=== PATIENT | male | born 1965 | race Caucasian/White ===

== ENCOUNTER 2016-10-30 10:44 | Inpatient (IN) | payer OTHER, SELFPAY ==
[~2016-10-30] VITALS: Ht 180.3 cm; Wt 96.7 kg
[2016-10-30] MEDS ORDERED: GLUCAGON FOR INJ 1 MG VIAL (J1610) SC PRN (13:00)
[2016-10-30] MEDS ORDERED: NITROGLYCERIN 0.4 MG SUBL TABLET SL PRN (13:00)
[2016-10-30] MEDS ORDERED: MIRALAX *UNIT DOSE* 17GM PACKET PO PRN (13:00)
[2016-10-30] MEDS ORDERED: oxyCODONE 5MG TAB PO PRN (13:00)
[2016-10-30] MEDS ORDERED: MOM 30ML SUSPENSION UDC PO PRN (13:00)
[2016-10-30] MEDS ORDERED: DEXTROSE 50% 50 ML SYRINGE IV PRN (13:00)
[2016-10-30] MEDS ORDERED: GLUCOSE 4 GM CHEW TABLET PO PRN (13:00)
[2016-10-30 14:30] VITALS: BP 157/75
--- NOTE | 2016-10-30 15:55 | HPEPDOC ---
Supervisor Buffing And Pasting Note ADMISSION H&P + [facility]OKESH DATE OF ADMISSION: 10/30/16 DATE OF SERVICE: 10/30/16 IDENTIFICATION STATEMENT: Patient is a 51-year-old gentleman with extended hospital course due to ARDS/pneumonia, acute kidney injury, DKA and acute heart failure admitted for comprehensive integrated inpatient rehabilitation. There ve been no significant changes in the patients condition since the preadmission screening. HISTORY OF PRESENT ILLNESS: Patient is a 51-year-old gentleman with multiple medical comorbidities including peripheral vascular disease status post femoropopliteal bypass, and recent non-ST elevation SC status post 4 drug- eluting stents on 10/02/2016 who was admitted to [facility] on October 07 with shortness of breath. He was diagnosed with pneumonia/ARDS required intubation. He was also found to have acute kidney injury with peak creatinine of 5.5. He required pressure support briefly. He developed of 2 bouts of florid DKA while on the vent. He also developed anasarca (up 30lbs) at which time he was transferred to [facility] for higher-level care/ potential dialysis. He is status post ceftaroline, meropenem and vancomycin. He was eventually of extubated on at [place]. Post extubation patient declining cognition with slow responses and was not oriented, but he was able to answer questions and follow commands. On 10/17/2016 was transferred back to [facility] on 10/19/2016 for continued care. Of note, his hemoglobin has been relatively stable although he has required transfusion of 5 units of packed red blood cells. He has been heme negative on multiple occasions. He is also noted to have relative hyperkalemia with potassium of 5-5.2. Hemoglobin A1c was 10.4. Patients medical condition has improved significantly; however, he continues to experience significant decline in his baseline functional status. As such recommendation was for acute rehabilitation. On 10/30/2016 he was deemed stable for discharge to [facility] inpatient rehabilitation unit. On evaluation today, patient reports that he was not on any pain medication or antidepressant prior to his recent admission. On his only pain is in his buttock area on which she describes as constant, waxing and waning, burning pain , rates the pain 5-6 on pain scale. He reports urinating well, no dysuria. Dc catheter was discontinued at approximately 10 AM this morning. He denies any pelvic fullness or pain. His last bowel movement was yesterday, he reports it as normal in consistency, denies of bright red blood per rectum or melena. Prior to admission he was on Lantus 35 units daily at bedtime along with you Humalog sliding scale before meals and at bedtime. PAST MEDICAL HISTORY: Hypertension Hyperlipidemia Diabetes mellitus type 2, insulin dependent (last hemoglobin A1c of 10.4) Peripheral vascular disease Coronary artery disease (80% obtuse marginal; 90% circumflex; mid left anterior descending 80%, proximal left anterior descending 70%) Chronic kidney disease (baseline creatinine approximately 1.3) Depressive disorder PAST SURGICAL HISTORY: Cholecystectomy Anal fistula repair in 1999 Right femoral popliteal bypass c/b saphenous graft abscess (MRSA)of the right thigh, revision in 2013 at [facility] Left bypass with graft ~2012 Non-ST elevation SC status post drug-eluting stents on 10/02/2016 (2 in the LAD , 1 obtuse marginal, 1 circumflex) ALLERGIES: Ciprofloxacin leads to hives MEDICATIONS: Amlodipine 10 mg daily Aspirin 81 mg daily Lipitor 80 mg daily Plavix 75 mg daily Ferrous sulfate 324 mg twice a day Lasix 40 mg by mouth daily Insulin sliding scale before meals and at bedtime Lantus 20 units subcutaneous at bedtime Nitroglycerin 0.4 mg sublingual when necessary for chest pain Metoprolol tartrate 50 mg by mouth twice a day Oxycodone IR 5 mg every 4 hours as needed for breakthrough pain Paxil 20 mg by mouth daily FAMILY HISTORY: Patients father suffered from diabetes type 2, of lung cancer at the age of 72. Patients mother suffered from diabetes mellitus type 2. She was in a motor vehicle accident and has been apparent paralyzed of with dysphasia and PEG tube since that time. SOCIAL HISTORY: Patient lives in a two-story house, but there is a first floor set up. There are 4 steps to enter. Review of Systems: General: no chills, +fatigue, +weight changes as above. Eyes: no change of vision. Ears, Nose & Throat: + sore throat but getting better , no decreased hearing or nasal discharge. Cardiovascular: no chest pain, claudication, + chronic LL edema, no syncopal episodes. Pul: no cough, SOB, orthopnea. GI: no abdominal pain, GERD, N/V, C/D, BRBPR/tarry stools, incontinence. Genitourinary: no frequency/dysuria. Musculoskeletal: no back/ neck/joint pain, +muscle achiness, burning pain in the bilateral buttocks and posterior thighs as above. Neurological: no numbness, paresthesias, no tremors, + diffuse weakness, no seizures, ABDI. Hematological: No bleeding disorders. Skin : +skin rash buttocks. Psychiatric: no depression, anxiety, behavioral issues. VITAL SIGNS: 98.1F, pulse 75, respiratory rate of 18, blood pressure 157/75, 96 % saturation on room air PHYSICAL EXAMINATION: GENERAL: Well nourished, well developed, sitting up in bed, no acute distress. HEENT: Normocephalic, atraumatic. No facial droop. No jugular venous distention (JVD). PERRL, EOMI CARDIOVASCULAR: S1, S2, regular rate. 2+ pitting edema bilateral lower limbs, no significant edema bilateral upper limbs. No calf tenderness bilaterally. LUNGS: +bibasilar basilar crackles, no wheezing or rhonchi appreciated. ABDOMEN: Soft, nontender, nondistended. Positive normoactive bowel sounds throughout. MUSCULOSKELETAL: Manual muscle testin/5 bilateral hip flexors and shoulder abduction and flexion, 5/5 remainder of the bilateral upper and lower limbs in all major muscle groups Sensation: Intact to soft touch bilateral upper and lower limbs. Deep tendon reflexes: Unable to elicit biceps or patellar bilaterally. NEUROLOGICAL: Alert and oriented x 3. Answers all questions appropriately. Able to follow commands without difficulty. SKIN: Extensive excoriation, blanching to nonblanching erythema bilateral buttocks over the sacrum, gluteal folds, posterio medial thighs, to 1 cm in diameter areas of skin breakdown posterior thigh and over the sacrum. Well healed surgical scars bilateral lower limbs. LABORATORY DATA: 10/29/2016: WBC count 8.4, hemoglobin 8.2, platelets 234,000, sodium 137, potassium 5.2, bicarbonate 28, BUN 33, creatinine 1.86, blood glucose 155. Sputum culture 10/17/2016: No bacteria seen IMAGING: Chest x-ray from [facility]: Pulmonary edema OTHER TESTS Echocardiogram on 10/19/2016: Preserved EF FUNCTIONAL STATUS: Premorbid: Independent with ADLs and ambulation. On Admission: Moderate assistance, able to ambulate 6 feet. ASSESSMENT AND PLAN: 1. ARDS status post extubation: Respiratory failure thought secondary to heart failure and possible pneumonia. Patient is status post antibiotics. Per the last laboratories his WBC count is within normal limits and he is off oxygen supplementation. Monitor for recurrence. Incentive spirometry. 2. Fluid overload/heart failure: Recent echocardiogram [facility] showed a preserved ejection fracture although official report is not available at this time. Patient is status post aggressive diuresis on. Will continue Lasix daily for the next 4-5 days. Well monitor daily weights along with intake and outtake. Continuation versus Discontinuing continuation of the diuretic will be pending the patients overall clinical status over the next few days. Will monitor patients electrolytes as well. 3. Acute kidney injury: Thought multifactorial secondary to contrast from recent catheterization, supratherapeutic vancomycin and congestive nephropathy. Per recent labs patients renal function has significantly improved although was not yet back to baseline. Will obtain a BMP with with morning labs. Medication adjustments as indicated. 4. Diabetes mellitus type 2 status post DKA: Given recent hemoglobin A1c, patient has not been well controlled. In conversation with Dr. Olvera, his attendant at [facility], his blood glucose has been labile ranging from the 70s up to 300s. Will maintain patient on long-acting insulin with insulin sliding scale. Adjustments as indicated. Carb consistent diet. 5. Gait abnormality and dysfunctional ADLs with overall medical debility secondary to extended hospital course related to items #1 through 4 above: Patient will undergo thorough physical and occupational therapy evaluations followed by daily intensive therapy. Rehabilitation nursing for bladder, bowel and medication management. 6. Electrolytes: Hyperkalemia secondary to acute kidney injury. As stated above , patient is continued on diuresis. Well obtain on a BMP along with a magnesium level with morning labs. 7. Coronary artery disease status post drug-eluting stents: Well maintain patient on aspirin and Plavix. 8. Anemia status post 5 units packed red blood cells: Given recent drug-eluting stents, patient must remain on Plavix and aspirin. There is no evidence there is no evidence at this time of active bleeding. Will obtain CBC in the morning. Well also obtain iron studies. Maintain hemoglobin greater than 8 given his comorbidities. 9. Stage II decubiti with possible comorbid fungal infection: Will prescribe nystatin cream. Foam dressings over the area of open areas. Mobilization. 10. Diet/nutrition: Will obtain a prealbumin with morning labs. Carbohydrate consistent diet. Nutritional supplements as indicated. POST ADMISSION PHYSICIAN EVALUATION: On evaluation of the patient today there' ve been no significant medical issues or functional changes as compared to those noted in the preadmission screening document. This patient's inpatient rehabilitation remains necessary in light of the above conditions. The patient' s medical condition requires specialized care with physicians specially trained in physical medicine rehabilitation. The patient is capable motivated to participate in a minimum of 3 hours of therapy daily, 5 days minimum per week, and requires intensive inpatient rehabilitation to improve their functional status so that they can be safely to discharge back to their home. PROGNOSIS: Good ESTIMATED LENGTH OF STAY: 14 days. / Vital Signs Vital Sign - Last 24 Hours 10/30/16 14:30 Temp 98.1 Pulse 75 Resp 18 B/P 157/75 Pulse Ox 96 O2 Delivery Room Air Home Medications Scheduled (B Complex) 1 Tab Tab 1 TAB PO DAILY (Reported) Amlodipine Besylate (Amlodipine Besylate) 5 Mg Tab 5 MG PO DAILY (Reported) 10MG DOSE GIVEN IN HOSP, HOME MED 5MG Aspirin (Aspirin 81) 81 Mg Tab 81 MG PO DAILY (Reported) Atorvastatin Calcium (Atorvastatin Calcium) 80 Mg Tab 80 MG PO DAILY (Reported) 40 MG GIVEN IN HOSP Clopidogrel Bisulfate (Clopidogrel) 75 Mg Tab 75 MG PO DAILY (Reported) Enoxaparin Sodium (Enoxaparin Sodium) 40 Mg/0.4 Ml Inj 40 MG SC QHS (Reported) NOT HOME MED, GIVEN IN HOSP Hydrocortisone Acetate (Hydrocortisone Acetate) 1 % Cre 1 DOSE TOP BID (Reported ) APPLIED TO BUTTOCKS Insulin Glargine (Lantus) 1 Units/0.01 Ml Susp 35 UNITS SC QHS (Reported) 20 UNITS GIVEN IN HOSP Insulin Human Regular (Humulin R) 1 Units/0.01 Ml Soln 1 DOSE SC TID (Reported) Lisinopril (Lisinopril) 20 Mg Tab 20 MG PO DAILY (Reported) Metoprolol Tartrate (Metoprolol Tartrate) 50 Mg Tab 50 MG PO BID (Reported) Pantoprazole Sodium (Pantoprazole Sodium) 40 Mg Tab 40 MG PO DAILY (Reported) NOT HOME MED, GIVEN IN HOSP Paroxetine Hydrochloride (Paxil) 20 Mg Tab 20 MG PO DAILY (Reported) Scheduled PRN Acetaminophen (Acetaminophen) 325 Mg Tab 650 MG PO Q6H PRN PRN PAIN (Reported) Cyclobenzaprine HCl (Cyclobenzaprine HCl) 5 Mg Tab 5 MG PO TID PRN PRN MUSCLE SPASMS (Reported) Nystatin (Nystatin Oint) 1 Dose/15 Gm Oint 1 DOSE TOP TID PRN PRN RASH (Reported ) APPLIED TO BUTTOCKS Nystatin (Nystatin Powder) 100,000 Unit/Gm Pow 1 DOSE TOP BID PRN PRN RASH ( Reported) APPLIED TO BUTTOCKS Allergies Coded Allergies: Ciprofloxacin (Verified Allergy, Unknown, 10/30/16) UVALDO BOLIVAR MD Oct 30, 2016 15:55
[2016-10-30] MEDS ORDERED: AMLO10TA2 PO (16:39)
[2016-10-30] MEDS ORDERED: PANT40TA2 PO (16:39)
[2016-10-30] MEDS ORDERED: ATOR40TA PO (16:39)
[2016-10-30] MEDS ORDERED: ENOX40IN3 SC (16:39)
[2016-10-30] MEDS ORDERED: ACET-654 PO (16:39)
[2016-10-30] MEDS ORDERED: METO50TA2 PO (16:39)
[2016-10-30] MEDS ORDERED: HYDR1CRE27 TOP (16:39)
[2016-10-30] MEDS ORDERED: INSURSD SC (16:39)
[2016-10-30] MEDS ORDERED: ASPI1TAB PO (16:39)
[2016-10-30] MEDS ORDERED: CLOP75TA2 PO (16:39)
[2016-10-30] MEDS ORDERED: PAXI20TA3 PO (16:39)
[2016-10-30] MEDS ORDERED: INSULANT SC (16:39)
[2016-10-30] MEDS ORDERED: FUROSEMIDE 40 MG TAB PO SCH (17:00)
[2016-10-30] MEDS ORDERED: AMLO5TAB2 PO (17:00)
[2016-10-30] MEDS ORDERED: ATOR1TAB18 PO (17:02)
[2016-10-30] MEDS ORDERED: B COTAB3 PO (17:04)
[2016-10-30] MEDS ORDERED: NYST-6 TOP (17:06)
[2016-10-30] MEDS ORDERED: CYCL5TA PO (17:06)
[2016-10-30] MEDS ORDERED: NYST100024 TOP (17:06)
[2016-10-30] MEDS ORDERED: LISI-538 PO (17:08)
[2016-10-30] MEDS: HumaLOG INSULIN (NovoLOG) PER UNIT SC SCH ×2 (18:19→21:49)
[2016-10-30 20:00] VITALS: BP 166/81
[2016-10-30] MEDS: GABAPENTIN 100 MG CAP PO SCH (21:47)
[2016-10-30] MEDS: SENNA 8.6 MG TAB (SENOKOT) PO SCH (21:47)
[2016-10-30] MEDS: DOCUSATE SODIUM 100 MG CAP PO SCH (21:47)
[2016-10-30] MEDS: METOPROLOL TART 50 MG TAB PO SCH (21:48)
[2016-10-30] MEDS: LEVEMIR (INSULIN DETEMIR) 1 UNITS/0.01ML SC SCH (21:49)
[2016-10-30] MEDS: NYSTATIN CREAM 15 GM TOP SCH (21:49)
[2016-10-31 06:00] VITALS: BP 149/76
[2016-10-31 06:48] LABS: MEAN CORPUSCULAR HGB CONC 31.6 g/dl (32.0-36.5); RED CELL DISTRIBUTION WIDTH 13.9 % (11.5-14.5); WHITE BLOOD COUNT 6.9 K/mm3 (4.0-10.0)
[2016-10-31 07:13] LABS: CALCIUM LEVEL 8.2 MG/DL (8.5-10.1); CREATININE FOR GFR 1.82 MG/DL (0.70-1.30); MAGNESIUM LEVEL 1.8 MG/DL (1.8-2.4); PERCENT SATURATION 26.6 % (19.7-37.4); POTASSIUM SERUM 4.4 MEQ/L (3.5-5.1)
[2016-10-31] MEDS: HumaLOG INSULIN (NovoLOG) PER UNIT SC SCH ×4 (07:30→20:42)
[2016-10-31] MEDS: ASPIRIN 81 MG ENTERIC TAB PO SCH (08:17)
[2016-10-31] MEDS: PANTOPRAZOLE 40MG TAB (PROTONIX) PO SCH (08:17)
[2016-10-31] MEDS: METOPROLOL TART 50 MG TAB PO SCH ×2 (08:17→20:49)
[2016-10-31] MEDS: CLOPIDOGREL 75 MG TAB PO SCH (08:17)
[2016-10-31] MEDS: DOCUSATE SODIUM 100 MG CAP PO SCH ×2 (08:17→20:43)
[2016-10-31] MEDS: ATORVASTATIN 20 MG TAB PO SCH (08:18)
[2016-10-31] MEDS: FUROSEMIDE 40 MG TAB PO SCH (08:18)
[2016-10-31] MEDS: amLODIPine 10 MG TAB PO SCH (08:18)
[2016-10-31] MEDS: NYSTATIN CREAM 15 GM TOP SCH ×2 (08:19→20:42)
[2016-10-31] MEDS ORDERED: PARoxetine 20 MG TAB PO SCH (09:00)
[2016-10-31 14:00] VITALS: BP 106/56
[2016-10-31] MEDS: FERROUS GLUCONATE 324 MG TAB PO SCH ×2 (16:00→20:41)
[2016-10-31] MEDS: ASCORBIC ACID 500 MG TAB PO SCH ×2 (16:00→20:41)
[2016-10-31 20:00] VITALS: BP 148/77
[2016-10-31] MEDS: GABAPENTIN 100 MG CAP PO SCH (20:41)
[2016-10-31] MEDS: LEVEMIR (INSULIN DETEMIR) 1 UNITS/0.01ML SC SCH (20:42)
[2016-10-31] MEDS: SENNA 8.6 MG TAB (SENOKOT) PO SCH (20:43)
[2016-11-01 06:00] VITALS: BP 148/74
[2016-11-01] MEDS: HumaLOG INSULIN (NovoLOG) PER UNIT SC SCH ×4 (07:30→21:24)
[2016-11-01 07:47] LABS: CALCIUM LEVEL 8.3 MG/DL (8.5-10.1); CREATININE FOR GFR 1.93 MG/DL (0.70-1.30); GLOMERULAR FILTRATION RATE 39.3 (>56); POTASSIUM SERUM 4.6 MEQ/L (3.5-5.1)
[2016-11-01 08:04] LABS: BASO % 0.7 % (0.0-1.0); EOS # 0.5 K/mm3 (0.0-0.50); LARGE UNSTAINED CELL # 0.1 K/mm3 (0.0-0.4); LARGE UNSTAINED CELL % 2.4 % (0.0-4.0); LYMPH # 1.2 K/mm3 (1.5-4.5); LYMPH % 22.6 % (24.0-44.0); MEAN CORPUSCULAR HEMOGLOBIN 31.2 pg (27.0-33.0); MEAN CORPUSCULAR HGB CONC 31.6 g/dl (32.0-36.5); MEAN CORPUSCULAR VOLUME 98.8 fl (80.0-96.0); MONO # 0.5 K/mm3 (0.0-0.8); MONO % 10.1 % (0.0-5.0); NEUTROPHILS # 2.7 K/mm3 (1.8-7.7); NEUTROPHILS % 54.2 % (36.0-66.0); PLATELET COUNT, AUTOMATED 347 k/mm3 (150-450); RED CELL DISTRIBUTION WIDTH 14.4 % (11.5-14.5)
[2016-11-01] MEDS: ASCORBIC ACID 500 MG TAB PO SCH ×2 (08:56→21:23)
[2016-11-01] MEDS: DOCUSATE SODIUM 100 MG CAP PO SCH ×2 (08:56→21:23)
[2016-11-01] MEDS: ASPIRIN 81 MG ENTERIC TAB PO SCH (08:56)
[2016-11-01] MEDS: FUROSEMIDE 40 MG TAB PO SCH (08:57)
[2016-11-01] MEDS: CLOPIDOGREL 75 MG TAB PO SCH (08:57)
[2016-11-01] MEDS: amLODIPine 10 MG TAB PO SCH (08:57)
[2016-11-01] MEDS: FERROUS GLUCONATE 324 MG TAB PO SCH ×2 (08:57→21:23)
[2016-11-01] MEDS: ATORVASTATIN 20 MG TAB PO SCH (08:57)
[2016-11-01] MEDS: PARoxetine 10MG TABLET PO SCH (09:00)
[2016-11-01] MEDS: METOPROLOL TART 50 MG TAB PO SCH ×2 (09:00→21:23)
[2016-11-01] MEDS: PANTOPRAZOLE 40MG TAB (PROTONIX) PO SCH (09:00)
[2016-11-01] MEDS: NYSTATIN CREAM 15 GM TOP SCH ×2 (09:01→21:25)
[2016-11-01 14:04] VITALS: BP 140/70
[2016-11-01] MEDS: ACETAMINOPHEN TAB 650MG DOSE (2X325MG) PO PRN (18:38)
[2016-11-01 20:04] VITALS: BP 135/68
[2016-11-01] MEDS: SENNA 8.6 MG TAB (SENOKOT) PO SCH (21:23)
[2016-11-01] MEDS: GABAPENTIN 100 MG CAP PO SCH (21:23)
[2016-11-01] MEDS: LEVEMIR (INSULIN DETEMIR) 1 UNITS/0.01ML SC SCH (21:24)
[2016-11-02 06:00] VITALS: BP 137/82
[2016-11-02 06:44] LABS: MEAN CORPUSCULAR HEMOGLOBIN 31.3 pg (27.0-33.0); MEAN CORPUSCULAR VOLUME 97.6 fl (80.0-96.0); RED CELL DISTRIBUTION WIDTH 14.4 % (11.5-14.5); WHITE BLOOD COUNT 4.7 K/mm3 (4.0-10.0)
[2016-11-02 06:59] LABS: CALCIUM LEVEL 8.6 MG/DL (8.5-10.1); CREATININE FOR GFR 1.94 MG/DL (0.70-1.30); POTASSIUM SERUM 4.6 MEQ/L (3.5-5.1)
[2016-11-02] MEDS: HumaLOG INSULIN (NovoLOG) PER UNIT SC SCH ×4 (07:20→20:21)
[2016-11-02] MEDS: CLOPIDOGREL 75 MG TAB PO SCH (08:53)
[2016-11-02] MEDS: ATORVASTATIN 20 MG TAB PO SCH (08:53)
[2016-11-02] MEDS: ASCORBIC ACID 500 MG TAB PO SCH ×2 (08:53→20:17)
[2016-11-02] MEDS: amLODIPine 10 MG TAB PO SCH (08:53)
[2016-11-02] MEDS: PANTOPRAZOLE 40MG TAB (PROTONIX) PO SCH (08:53)
[2016-11-02] MEDS: DOCUSATE SODIUM 100 MG CAP PO SCH ×2 (08:53→20:17)
[2016-11-02] MEDS: FERROUS GLUCONATE 324 MG TAB PO SCH ×2 (08:53→20:17)
[2016-11-02] MEDS: FUROSEMIDE 40 MG TAB PO SCH (08:54)
[2016-11-02] MEDS: ASPIRIN 81 MG ENTERIC TAB PO SCH (08:54)
[2016-11-02] MEDS: PARoxetine 10MG TABLET PO SCH (08:54)
[2016-11-02] MEDS: METOPROLOL TART 50 MG TAB PO SCH ×2 (08:54→20:17)
[2016-11-02] MEDS: NYSTATIN CREAM 15 GM TOP SCH ×2 (08:55→20:20)
[2016-11-02 14:00] VITALS: BP 129/71
--- NOTE | 2016-11-02 14:43 | IPNPDOC ---
Cancer Genetic Counselor Progress Note PROGREE NOTE DATE OF ADMISSION: 10/30/16 DATE OF SERVICE: 11/02/16 IDENTIFICATION STATEMENT: Patient is a 51-year-old gentleman with extended hospital course due to ARDS/pneumonia, acute kidney injury, DKA, acute heart failure admitted for comprehensive integrated inpatient rehabilitation. PAST MEDICAL HISTORY: Hypertension Hyperlipidemia Diabetes mellitus type 2, insulin dependent (last hemoglobin A1c of 10.4) Peripheral vascular disease Coronary artery disease (80% obtuse marginal; 90% circumflex; mid left anterior descending 80%, proximal left anterior descending 70%) Chronic kidney disease (baseline creatinine approximately 1.3) Depressive disorder PAST SURGICAL HISTORY: Cholecystectomy Anal fistula repair in 1999 Right femoral popliteal bypass c/b saphenous graft abscess (MRSA)of the right thigh, revision in 2013 at [facility] Left bypass with graft ~2012 Non-ST elevation [place] status post drug-eluting stents on 10/02/2016 (2 in the LAD , 1 obtuse marginal, 1 circumflex) ALLERGIES: Ciprofloxacin leads to hives MEDICATIONS: Amlodipine 10 mg daily Aspirin 81 mg daily Lipitor 80 mg daily Plavix 75 mg daily Ferrous sulfate 324 mg twice a day Lasix 40 mg by mouth daily Insulin sliding scale before meals and at bedtime Lantus 20 units subcutaneous at bedtime Nitroglycerin 0.4 mg sublingual when necessary for chest pain Metoprolol tartrate 50 mg by mouth twice a day Oxycodone IR 5 mg every 4 hours as needed for breakthrough pain Paxil 20 mg by mouth daily SUBJECTIVE: Patient w/o complaints. Feels pretty good. Denies any CP, SOB, N/V, BRBPR, lightheadedness, diaphoresis. Legs a little more swollen than usual. VITAL SIGNS: 97.4F, pulse 64, respiratory rate of 18, blood pressure 129/71, 96 % saturation on room air PHYSICAL EXAMINATION: GENERAL: Well nourished, well developed, sitting up in chair, no acute distress. HEENT: Normocephalic, atraumatic. PERRL, EOMI CARDIOVASCULAR: S1, S2, regular rate. 1-2+ pitting edema bilateral lower limbs. No calf tenderness bilaterally. LUNGS: +bibasilar basilar crackles, no wheezing or rhonchi appreciated. ABDOMEN: Soft, nontender, nondistended. Positive normoactive bowel sounds throughout. MUSCULOSKELETAL: Manual muscle testin/5 bilateral hip flexors and shoulder abduction and flexion, 5/5 remainder of the bilateral upper and lower limbs in all major muscle groups NEUROLOGICAL: Alert and oriented x 3. Answers all questions appropriately. Able to follow commands without difficulty. SKIN: Extensive excoriation, blanching to nonblanching erythema bilateral buttocks over the sacrum, gluteal folds, posteriomedial thighs, to 1 cm in diameter areas of skin breakdown posterior thigh and over the sacrum. LABORATORY DATA: 11/02/16: reviewed, see below 10/29/2016: WBC count 8.4, hemoglobin 8.2, platelets 234,000, sodium 137, potassium 5.2, bicarbonate 28, BUN 33, creatinine 1.86, blood glucose 155. Sputum culture 10/17/2016: No bacteria seen IMAGING: Chest x-ray from [facility]: Pulmonary edema OTHER TESTS Echocardiogram on 10/19/2016: Preserved EF FUNCTIONAL STATUS: Premorbid: Independent with ADLs and ambulation. On Admission: Moderate assistance, able to ambulate 6 feet. ASSESSMENT AND PLAN: 1. ARDS status post extubation: Respiratory failure thought secondary to heart failure and possible pneumonia. Patient is status post antibiotics. Monitor for recurrence. Incentive spirometry. 2. Fluid overload/heart failure: Recent echocardiogram showed a preserved ejection fracture. Patient is status post aggressive diuresis on. Will continue Lasix daily for now give LL edema and crackles. Continue daily weights along with intake and outtake. 3. Acute kidney injury (multifactorial secondary to contrast from recent catheterization, supratherapeutic vancomycin and congestive nephropathy): Not yet back to baseline. Am labs. 4. Diabetes mellitus type 2 status post DKA: Maintain long-acting insulin with insulin sliding scale. Adjustments as indicated. Carb consistent diet. 5. Gait abnormality and dysfunctional ADLs with overall medical debility secondary to extended hospital course related to items #1 through 4 above: Patient making progress. Continue daily physical and occupational therapy. Rehabilitation nursing for bladder, bowel and medication management. 6. Electrolytes: Hyperkalemia secondary to acute kidney injury, resolved. 7. Coronary artery disease status post drug-eluting stents: Maintain patient on aspirin and Plavix. Maintain Hgb > 8 8. Anemia status post 5 units packed red blood cells at OSH: S/p 1 unit this weekend. Also started on iron supplementation. Given recent drug-eluting stents , patient must remain on Plavix and aspirin. Will obtain CBC in the morning. As above,mMaintain hemoglobin greater than 8 given his comorbidities. 9. Stage II decubiti with possible comorbid fungal infection: Continue nystatin cream. Foam dressings over the area of open areas. Mobilization. 10. Diet/malnutrition: Prealbumin low. Carbohydrate consistent diet. Glucerna nutritional supplements. / Vital Signs Vital Sign - Last 24 Hours 11/01/16 11/01/16 11/02/16 11/02/16 20:04 21:23 06:00 08:53 Temp 97.4 97.6 Pulse 76 76 72 72 Resp 18 18 B/P 135/68 135/68 137/82 137/82 Pulse Ox 95 95 O2 Delivery Room Air 11/02/16 11/02/16 08:54 14:00 Temp 97.4 Pulse 72 64 Resp 18 B/P 137/82 129/71 Pulse Ox 96 O2 Delivery Room Air Laboratory Data CBC/BMP Laboratory Tests 11/02/16 06:32 Calcium Level 8.6, Red Blood Count 2.72 L, Mean Corpuscular Volume 97.6 H, Mean Corpuscular Hemoglobin 31.3, Mean Corpuscular Hemoglobin Concent 32.0, Red Cell Distribution Width 14.4 Labs 24H Laboratory Tests 2 11/01/16 16:34: Bedside Glucose (Misc Panel) 196H 11/01/16 20:19: Bedside Glucose (Misc Panel) 227H 11/02/16 06:32: Anion Gap 7L, Blood Urea Nitrogen 26H, Creatinine 1.94H, Sodium Level 141, Potassium Level 4.6, Chloride Level 104, Carbon Dioxide Level 30, Calcium Level 8.6, Glomerular Filtration Rate 39.0L 11/02/16 11:20: Bedside Glucose (Misc Panel) 82 FSBS Laboratory Tests Test 11/01/16 16:34 11/01/16 20:19 11/02/16 11:20 Range/Units Bedside Glucose (Misc Panel) 196 227 82 70-105 MG/DL Microbiology Microbiology 10/30/16 MRSA Screen - Final, Complete Allergies Allergies: Coded Allergies: Ciprofloxacin (Verified Allergy, Unknown, 10/30/16) Current Medications Current Medications Current Medications Acetaminophen (Tylenol Tab) 650 mg Q4HP PRN PO MILD PAIN (PS 1-4) Last administered on 11/01/16t 18:38; Start 10/30/16 at 13:00; Stop 11/29/16 at 12:59 Amlodipine Besylate (Norvasc) 10 mg DAILY PO Last administered on 11/02/16 08: 53; Start 10/31/16 at 09:00; Stop 11/30/16 at 08:59 Ascorbic Acid (Vitamin C) 500 mg BID PO Last administered on 11/02/16 08:53; Start 10/31/16 at 09:00; Stop 11/30/16 at 08:59 Aspirin (Ecotrin) 81 mg DAILY PO Last administered on 11/02/16 08:54; Start at 09:00; Stop 11/30/16 at 08:59 Atorvastatin Calcium (Lipitor) 80 mg DAILY PO Last administered on 11/02/16 08 :53; Start 10/31/16 at 09:00; Stop 11/30/16 at 08:59 Clopidogrel Bisulfate (PLAVix) 75 mg DAILY PO Last administered on 11/02/16 08 :53; Start 10/31/16 at 09:00; Stop 11/30/16 at 08:59 Dextrose (Dextrose 50%) 25 ml ASDIRECTED PRN IV SEE LABEL COMMENTS; Start 10/30 at 13:00; Stop 11/29/16 at 12:59 Docusate Sodium (Colace) 100 mg BID PO Last administered on 11/02/16 08:53; Start 10/30/16 at 21:00; Stop 11/29/16 at 20:59 Ferrous Gluconate (Fergon) 324 mg BID PO Last administered on 11/02/16 08:53; Start 10/31/16 at 09:00; Stop 11/30/16 at 08:59 Furosemide (Lasix) 40 mg BID@ PO ; Start 10/30/16 at 17:00; Stop 10/30/16 at 17:00; Status DC Furosemide (Lasix) 40 mg DAILY PO Last administered on 11/02/16 08:54; Start 10/31/16 at 09:00; Stop 11/30/16 at 08:59 Gabapentin (Neurontin) 100 mg QHS PO Last administered on 11/01/16 21:23; Start 10/30/16 at 21:00; Stop 11/29/16 at 20:59 Glucagon (Glucagon) 1 mg ASDIRECTED PRN SC SEE LABEL COMMENTS; Start 10/30/16 at 13:00; Stop 11/29/16 at 12:59 Glucose (Glucose) 16 GM ASDIRECTED PRN PO SEE LABEL COMMENTS; Start 10/30/16 at 13:00; Stop 11/29/16 at 12:59 Home Med (Med Rec Complete!) ASDIRECTED XX ; Start 10/30/16 at 17:15; Stop 07/06 at 17:15; Status DC Insulin Detemir (Levemir Insulin) 20 units QHS SC Last administered on 21:24; Start 10/30/16 at 21:00; Stop 11/29/16 at 20:59 Insulin Human Lispro (HumaLOG INSULIN) See Protocol Table AC SC Last administered on 11/01/16 17:34; Start 10/30/16 at 17:30; Stop 11/29/16 at 17:29 Insulin Human Lispro (HumaLOG INSULIN) See Protocol Table QHS SC ; Start at 21:00; Stop 11/29/16 at 20:59 Magnesium Hydroxide (Milk Of Magnesia) 30 ml DAILYPRN PRN PO CONSTIPATION; Start 10/30/16 at 13:00; Stop 11/29/16 at 12:59 Metoprolol Tartrate (Lopressor) 50 mg BID PO Last administered on 11/02/16 08: 54; Start 10/30/16 at 21:00; Stop 11/29/16 at 20:59 Nitroglycerin (Nitrostat (1/ 150)) 0.4 mg Q5MP PRN SL CHEST PAIN; Start at 13:00; Stop 11/29/16 at 12:59 Nystatin (Mycostatin) 1 dose BID TOP Last administered on 11/02/16 08:55; Start 10/30/16 at 21:00; Stop 11/29/16 at 20:59 Oxycodone HCl (Roxicodone, Oxyir) 5 mg Q4HP PRN PO MODERATE/SEVERE PAIN (PS 6- 10) Last administered on 10/31/16 09:07; Start 10/30/16 at 13:00; Stop at 12:59 Pantoprazole Sodium (Protonix) 40 mg DAILY PO Last administered on 11/02/16 08 :53; Start 10/31/16 at 09:00; Stop 11/30/16 at 08:59 Paroxetine HCl (PAXil) 10 mg DAILY PO Last administered on 11/02/16 08:54; Start 11/01/16 at 09:00; Stop 12/01/16 at 08:59 Paroxetine HCl (PAXil) 20 mg DAILY PO Last administered on 10/31/16 08:16; Start 10/31/16 at 09:00; Stop 10/31/16 at 12:10; Status DC Polyethylene Glycol (Miralax) 1 pkt DAILY PRN PO CONSTIPATION; Start 10/30/16 at 13:00; Stop 11/29/16 at 12:59 Senna (Senokot) 1 tab QHS PO Last administered on 11/01/16 21:23; Start at 21:00; Stop 11/29/16 at 20:59 UVALDO BOLIVAR MD Nov 02, 2016 14:42
--- NOTE | 2016-11-02 15:14 | REP ---
Clinical: Bibasilar crackles. Technique: PA and lateral. Comparison: None. Findings: Chronic interstitial changes and fibrosis are suggested with superimposed bilateral lower lobe infiltrates. No definite effusion. No pneumothorax. Skeletal structures intact. Impression: Chronic interstitial changes/fibrosis. Superimposed lower lobe infiltrates. Differential diagnosis includes multifocal pneumonia and pulmonary edema. Signed by Santiago Naranjo MD 11/02/2016 03:05 P
[2016-11-02] MEDS ORDERED: SLF 3 ML SYR IV PRN (19:00)
[2016-11-02 20:00] VITALS: BP 157/78
[2016-11-02] MEDS: GABAPENTIN 100 MG CAP PO SCH (20:17)
[2016-11-02] MEDS: SENNA 8.6 MG TAB (SENOKOT) PO SCH (20:17)
[2016-11-02] MEDS: LEVEMIR (INSULIN DETEMIR) 1 UNITS/0.01ML SC SCH (20:17)
[2016-11-02] MEDS: SLF 3 ML SYR IV SCH (22:47)
[2016-11-03 06:02] VITALS: BP 148/74
[2016-11-03] MEDS: SLF 3 ML SYR IV SCH ×3 (06:27→22:10)
[2016-11-03] MEDS: HumaLOG INSULIN (NovoLOG) PER UNIT SC SCH ×4 (07:09→21:00)
[2016-11-03 07:28] LABS: MEAN CORPUSCULAR HEMOGLOBIN 31.2 pg (27.0-33.0); MEAN CORPUSCULAR HGB CONC 31.8 g/dl (32.0-36.5); MEAN CORPUSCULAR VOLUME 98.1 fl (80.0-96.0); RED CELL DISTRIBUTION WIDTH 14.2 % (11.5-14.5); WHITE BLOOD COUNT 5.4 K/mm3 (4.0-10.0)
[2016-11-03 07:41] LABS: CALCIUM LEVEL 8.5 MG/DL (8.5-10.1); CREATININE FOR GFR 1.9 MG/DL (0.70-1.30); POTASSIUM SERUM 4.3 MEQ/L (3.5-5.1)
[2016-11-03] MEDS: amLODIPine 10 MG TAB PO SCH (08:36)
[2016-11-03] MEDS: DOCUSATE SODIUM 100 MG CAP PO SCH ×2 (08:36→21:01)
[2016-11-03] MEDS: ASPIRIN 81 MG ENTERIC TAB PO SCH (08:36)
[2016-11-03] MEDS: ACETAMINOPHEN TAB 650MG DOSE (2X325MG) PO PRN (08:36)
[2016-11-03] MEDS: CLOPIDOGREL 75 MG TAB PO SCH (08:36)
[2016-11-03] MEDS: PARoxetine 10MG TABLET PO SCH (08:36)
[2016-11-03] MEDS: PANTOPRAZOLE 40MG TAB (PROTONIX) PO SCH (08:36)
[2016-11-03] MEDS: FUROSEMIDE 40 MG TAB PO SCH (08:36)
[2016-11-03] MEDS: ATORVASTATIN 20 MG TAB PO SCH (08:36)
[2016-11-03] MEDS: FERROUS GLUCONATE 324 MG TAB PO SCH ×2 (08:36→21:01)
[2016-11-03] MEDS: METOPROLOL TART 50 MG TAB PO SCH ×2 (08:37→21:01)
[2016-11-03] MEDS: ASCORBIC ACID 500 MG TAB PO SCH ×2 (08:37→21:01)
[2016-11-03] MEDS: NYSTATIN CREAM 15 GM TOP SCH (08:38)
[2016-11-03 10:31] VITALS: BP 123/71
--- NOTE | 2016-11-03 13:50 | IPNPDOC ---
Anchor Tack Puller Progress Note PROGREE NOTE DATE OF ADMISSION: 10/30/16 DATE OF SERVICE: 11/03/16 IDENTIFICATION STATEMENT: Patient is a 51-year-old gentleman with extended hospital course due to ARDS/pneumonia, acute kidney injury, DKA, acute heart failure admitted for comprehensive integrated inpatient rehabilitation. PAST MEDICAL HISTORY: Hypertension Hyperlipidemia Diabetes mellitus type 2, insulin dependent (last hemoglobin A1c of 10.4) Peripheral vascular disease Coronary artery disease (80% obtuse marginal; 90% circumflex; mid left anterior descending 80%, proximal left anterior descending 70%) Chronic kidney disease (baseline creatinine approximately 1.3) Depressive disorder PAST SURGICAL HISTORY: Cholecystectomy Anal fistula repair in 1999 Right femoral popliteal bypass c/b saphenous graft abscess (MRSA)of the right thigh, revision in [address] [facility] Left bypass with graft ~2012 Non-ST elevation [place] status post drug-eluting stents on 10/02/2016 (2 in the LAD , 1 obtuse marginal, 1 circumflex) ALLERGIES: Ciprofloxacin leads to hives MEDICATIONS: Amlodipine 10 mg daily Aspirin 81 mg daily Lipitor 80 mg daily Plavix 75 mg daily Ferrous sulfate 324 mg twice a day Lasix 40 mg by mouth daily Insulin sliding scale before meals and at bedtime Detemir 15 units subcutaneous at bedtime Nitroglycerin 0.4 mg sublingual when necessary for chest pain Metoprolol tartrate 50 mg by mouth twice a day Oxycodone IR 5 mg every 4 hours as needed for breakthrough pain Paxil 20 mg by mouth daily SUBJECTIVE: Patient states blood sugar was really low this morning, but now feels ok. No complaints. Denies any CP, SOB, N/V, lightheadedness, diaphoresis. Legs still a little more swollen than usual. VITAL SIGNS: 97.1F, pulse 59, respiratory rate of 18, blood pressure 123/71, 98 % saturation on room air PHYSICAL EXAMINATION: GENERAL: Well nourished, well developed, sitting up in chair, no acute distress. HEENT: Normocephalic, atraumatic. PERRL, EOMI CARDIOVASCULAR: S1, S2, regular rate. 1-2+ pitting edema bilateral lower limbs ( L>R sl less than yesterday). No calf tenderness bilaterally. LUNGS: +bilateral crackles 1/3 up, no wheezing or rhonchi appreciated. ABDOMEN: Soft, nontender, nondistended. Positive normoactive bowel sounds throughout. MUSCULOSKELETAL: Manual muscle testin/5 bilateral hip flexors and shoulder abduction and flexion, 5/5 remainder of the bilateral upper and lower limbs in all major muscle groups NEUROLOGICAL: Alert and oriented x 3. Answers all questions appropriately. Able to follow commands without difficulty. SKIN: Extensive excoriation, blanching to nonblanching erythema bilateral buttocks over the sacrum, gluteal folds, posteriomedial thighs (decreased as compared to admission), to 1 cm in diameter areas of skin breakdown posterior thigh and over the sacrum (healing). LABORATORY DATA: 11/03/16: reviewed, see below 10/29/2016: WBC count 8.4, hemoglobin 8.2, platelets 234,000, sodium 137, potassium 5.2, bicarbonate 28, BUN 33, creatinine 1.86, blood glucose 155. Sputum culture 10/17/2016: No bacteria seen IMAGING: CXR 11/02/16: pul edema vs pna Chest x-ray from [facility]: Pulmonary edema OTHER TESTS Echocardiogram on 10/19/2016: Preserved EF FUNCTIONAL STATUS: Premorbid: Independent with ADLs and ambulation. On Admission: Moderate assistance, able to ambulate 6 feet. ASSESSMENT AND PLAN: 1. ARDS status post extubation: Respiratory failure thought secondary to heart failure and possible pneumonia. Patient is status post antibiotics. While CXR read and pna vs edema, clinically more consistent with edema. Continue Incentive spirometry. 2. Fluid overload/heart failure: Recent echocardiogram showed a preserved ejection fracture. Patient is status post aggressive diuresis at OSH. Will continue Lasix daily at current dose given LL edema and recent CXR. Continue daily weights along with intake and outtake. 3. Acute kidney injury (multifactorial secondary to contrast from recent catheterization, supratherapeutic vancomycin and congestive nephropathy): Not yet back to baseline. 4. Diabetes mellitus type 2 status post DKA: Decreased long-acting insulin 2nd low BG this am. Continue insulin sliding scale. Adjustments as indicated. Carb consistent diet. 5. Gait abnormality and dysfunctional ADLs with overall medical debility secondary to extended hospital course related to items #1 through 4 above: Patient making progress. Continue daily physical and occupational therapy. Rehabilitation nursing for bladder, bowel and medication management. 6. Electrolytes: Hyperkalemia secondary to acute kidney injury, resolved. 7. Coronary artery disease status post drug-eluting stents: Maintain patient on aspirin and Plavix. Maintain Hgb > 8 8. Anemia status post 5 units packed red blood cells at OSH: S/p 1 unit . Also started on iron supplementation. Given recent drug-eluting stents, patient must remain on Plavix and aspirin. As above,maintain hemoglobin greater than 8 given his comorbidities. 9. Stage II decubiti with possible comorbid fungal infection: Continue nystatin cream. Foam dressings over the area of open areas. Mobilization. 10. Diet/malnutrition: Prealbumin low. Carbohydrate consistent diet. Glucerna nutritional supplements. / Vital Signs Vital Sign - Last 24 Hours 11/02/16 11/02/16 11/02/16 11/03/16 14:00 20:00 20:17 06:02 Temp 97.4 97.2 97.1 Pulse 64 69 69 73 Resp 18 18 18 B/P 129/71 157/78 157/78 148/74 Pulse Ox 96 96 98 O2 Delivery Room Air Room Air 11/03/16 11/03/16 11/03/16 08:36 08:37 10:31 Pulse 73 73 59 B/P 148/74 148/74 123/71 Laboratory Data CBC/BMP Laboratory Tests 11/03/16 07:02 Calcium Level 8.5, Red Blood Count 2.95 L, Mean Corpuscular Volume 98.1 H, Mean Corpuscular Hemoglobin 31.2, Mean Corpuscular Hemoglobin Concent 31.8 L, Red Cell Distribution Width 14.2 Labs 24H Laboratory Tests 2 11/02/16 16:43: Bedside Glucose (Misc Panel) 252H 11/02/16 19:25: Bedside Glucose (Misc Panel) 206H 11/03/16 06:38: Bedside Glucose (Misc Panel) 48L 11/03/16 06:59: Bedside Glucose (Misc Panel) 74 11/03/16 07:02: Anion Gap 8, Blood Urea Nitrogen 25H, Creatinine 1.90H, Sodium Level 139, Potassium Level 4.3, Chloride Level 102, Carbon Dioxide Level 29, Calcium Level 8.5, Glomerular Filtration Rate 40.0L 11/03/16 07:25: Bedside Glucose (Misc Panel) 184H 11/03/16 10:28: Bedside Glucose (Misc Panel) 197H 11/03/16 11:18: Bedside Glucose (Misc Panel) 166H FSBS Laboratory Tests Test 11/02/16 16:43 11/02/16 19:25 11/03/16 06:38 11/03/16 06:59 Range/Units Bedside Glucose (Misc Panel) 252 206 48 74 70-105 MG/DL Test 11/03/16 07:25 11/03/16 10:28 11/03/16 11:18 Range/Units Bedside Glucose (Misc Panel) 184 197 166 70-105 MG/DL Microbiology Microbiology 11/02/16 Stool Occult Blood (LUNA) - Final, Complete 10/30/16 MRSA Screen - Final, Complete Allergies Allergies: Coded Allergies: Ciprofloxacin (Verified Allergy, Unknown, 10/30/16) Current Medications Current Medications Current Medications Acetaminophen (Tylenol Tab) 650 mg Q4HP PRN PO MILD PAIN (PS 1-4) Last administered on 11/03/16 08:36; Start 10/30/16 at 13:00; Stop 11/29/16 at 12:59 Amlodipine Besylate (Norvasc) 10 mg DAILY PO Last administered on 11/03/16 08: 36; Start 10/31/16 at 09:00; Stop 11/30/16 at 08:59 Ascorbic Acid (Vitamin C) 500 mg BID PO Last administered on 11/03/16 08:37; Start 10/31/16 at 09:00; Stop 11/30/16 at 08:59 Aspirin (Ecotrin) 81 mg DAILY PO Last administered on 11/03/16 08:36; Start at 09:00; Stop 11/30/16 at 08:59 Atorvastatin Calcium (Lipitor) 80 mg DAILY PO Last administered on 11/03/16 08 :36; Start 10/31/16 at 09:00; Stop 11/30/16 at 08:59 Clopidogrel Bisulfate (PLAVix) 75 mg DAILY PO Last administered on 11/03/16 08 :36; Start 10/31/16 at 09:00; Stop 11/30/16 at 08:59 Dextrose (Dextrose 50%) 25 ml ASDIRECTED PRN IV SEE LABEL COMMENTS; Start 10/30 at 13:00; Stop 11/29/16 at 12:59 Docusate Sodium (Colace) 100 mg BID PO Last administered on 11/03/16 08:36; Start 10/30/16 at 21:00; Stop 11/29/16 at 20:59 Ferrous Gluconate (Fergon) 324 mg BID PO Last administered on 11/03/16 08:36; Start 10/31/16 at 09:00; Stop 11/30/16 at 08:59 Furosemide (Lasix) 40 mg BID@,17 PO ; Start 10/30/16 at 17:00; Stop 10/30/16 at 17:00; Status DC Furosemide (Lasix) 40 mg DAILY PO Last administered on 11/03/16 08:36; Start 10/31/16 at 09:00; Stop 11/30/16 at 08:59 Gabapentin (Neurontin) 100 mg QHS PO Last administered on 11/02/16 20:17; Start 10/30/16 at 21:00; Stop 11/29/16 at 20:59 Glucagon (Glucagon) 1 mg ASDIRECTED PRN SC SEE LABEL COMMENTS; Start 10/30/16 at 13:00; Stop 11/29/16 at 12:59 Glucose (Glucose) 16 GM ASDIRECTED PRN PO SEE LABEL COMMENTS; Start 10/30/16 at 13:00; Stop 11/29/16 at 12:59 Home Med (Med Rec Complete!) ASDIRECTED XX ; Start 10/30/16 at 17:15; Stop 07/06 at 17:15; Status DC Insulin Detemir (Levemir Insulin) 15 units QHS SC ; Start 11/03/16 at 21:00; Stop 12/03/16 at 20:59 Insulin Detemir (Levemir Insulin) 20 units QHS SC Last administered on 20:17; Start 10/30/16 at 21:00; Stop 11/03/16 at 08:26; Status DC Insulin Human Lispro (HumaLOG INSULIN) See Protocol Table AC SC Last administered on 11/03/16 12:06; Start 10/30/16 at 17:30; Stop 11/29/16 at 17:29 Insulin Human Lispro (HumaLOG INSULIN) See Protocol Table QHS SC ; Start at 21:00; Stop 11/29/16 at 20:59 Magnesium Hydroxide (Milk Of Magnesia) 30 ml DAILYPRN PRN PO CONSTIPATION; Start 10/30/16 at 13:00; Stop 11/29/16 at 12:59 Metoprolol Tartrate (Lopressor) 50 mg BID PO Last administered on 11/03/16 08: 37; Start 10/30/16 at 21:00; Stop 11/29/16 at 20:59 Nitroglycerin (Nitrostat (1/ 150)) 0.4 mg Q5MP PRN SL CHEST PAIN; Start at 13:00; Stop 11/29/16 at 12:59 Nystatin (Mycostatin) 1 dose BID TOP Last administered on 11/03/16 08:38; Start 10/30/16 at 21:00; Stop 11/29/16 at 20:59 Oxycodone HCl (Roxicodone, Oxyir) 5 mg Q4HP PRN PO MODERATE/SEVERE PAIN (PS 6- 10) Last administered on 10/31/16 09:07; Start 10/30/16 at 13:00; Stop at 12:59 Pantoprazole Sodium (Protonix) 40 mg DAILY PO Last administered on 11/03/16 08 :36; Start 10/31/16 at 09:00; Stop 11/30/16 at 08:59 Paroxetine HCl (PAXil) 10 mg DAILY PO Last administered on 11/03/16 08:36; Start 11/01/16 at 09:00; Stop 12/01/16 at 08:59 Paroxetine HCl (PAXil) 20 mg DAILY PO Last administered on 10/31/16 08:16; Start 10/31/16 at 09:00; Stop 10/31/16 at 12:10; Status DC Polyethylene Glycol (Miralax) 1 pkt DAILY PRN PO CONSTIPATION; Start 10/30/16 at 13:00; Stop 11/29/16 at 12:59 Senna (Senokot) 1 tab QHS PO Last administered on 11/02/16 20:17; Start at 21:00; Stop 11/29/16 at 20:59 Sodium Chloride (Saline Lock Flush) 2 ml ASDIRECTED PRN IV SEE LABEL COMMENTS; Start 11/02/16 at 19:00; Stop 12/02/16 at 18:59 Sodium Chloride (Saline Lock Flush) 2 ml SLF IV Last administered on 11/03/16t 13:02; Start 11/02/16 at 22:00; Stop 12/02/16 at 21:59 UVALDO BOLIVAR MD Nov 03, 2016 13:50
[2016-11-03 14:00] VITALS: BP 130/63
[2016-11-03 21:00] VITALS: BP 138/72
[2016-11-03] MEDS: SENNA 8.6 MG TAB (SENOKOT) PO SCH (21:01)
[2016-11-03] MEDS: GABAPENTIN 100 MG CAP PO SCH (21:01)
[2016-11-03] MEDS: MYCOLOG CREAM 15 GM (NYSTATIN/TRIAMCINOLONE) TOP SCH (21:02)
[2016-11-03] MEDS: LEVEMIR (INSULIN DETEMIR) 1 UNITS/0.01ML SC SCH (21:02)
[2016-11-04] MEDS: SLF 3 ML SYR IV SCH ×3 (05:16→22:00)
[2016-11-04 06:05] VITALS: BP 147/69
[2016-11-04] MEDS: FUROSEMIDE 40 MG TAB PO SCH (07:55)
[2016-11-04] MEDS: FERROUS GLUCONATE 324 MG TAB PO SCH ×2 (07:55→20:15)
[2016-11-04] MEDS: DOCUSATE SODIUM 100 MG CAP PO SCH ×2 (07:55→20:47)
[2016-11-04] MEDS: amLODIPine 10 MG TAB PO SCH (07:55)
[2016-11-04] MEDS: ATORVASTATIN 20 MG TAB PO SCH (07:55)
[2016-11-04] MEDS: CLOPIDOGREL 75 MG TAB PO SCH (07:56)
[2016-11-04] MEDS: ASPIRIN 81 MG ENTERIC TAB PO SCH (07:56)
[2016-11-04] MEDS: PARoxetine 10MG TABLET PO SCH (07:56)
[2016-11-04] MEDS: PANTOPRAZOLE 40MG TAB (PROTONIX) PO SCH (07:56)
[2016-11-04] MEDS: METOPROLOL TART 50 MG TAB PO SCH ×2 (07:56→20:15)
[2016-11-04] MEDS: ASCORBIC ACID 500 MG TAB PO SCH ×2 (07:56→20:15)
[2016-11-04] MEDS: HumaLOG INSULIN (NovoLOG) PER UNIT SC SCH ×4 (07:57→20:48)
[2016-11-04] MEDS: MYCOLOG CREAM 15 GM (NYSTATIN/TRIAMCINOLONE) TOP SCH ×2 (07:58→20:16)
--- NOTE | 2016-11-04 10:40 | IPNPDOC ---
Bagman/Woman Progress Note PROGRESS NOTE DATE OF ADMISSION: 10/30/16 DATE OF SERVICE: 11/04/16 IDENTIFICATION STATEMENT: Patient is a 51-year-old gentleman with extended hospital course due to ARDS/pneumonia, acute kidney injury, DKA, acute heart failure admitted for comprehensive integrated inpatient rehabilitation. PAST MEDICAL HISTORY: Hypertension Hyperlipidemia Diabetes mellitus type 2, insulin dependent (last hemoglobin A1c of 10.4) Peripheral vascular disease Coronary artery disease (80% obtuse marginal; 90% circumflex; mid left anterior descending 80%, proximal left anterior descending 70%) Chronic kidney disease (baseline creatinine approximately 1.3) Depressive disorder PAST SURGICAL HISTORY: Cholecystectomy Anal fistula repair in 1999 Right femoral popliteal bypass c/b saphenous graft abscess (MRSA)of the right thigh, revision in 2013 at [facility] Left bypass with graft ~2012 Non-ST elevation [place] status post drug-eluting stents on 10/02/2016 (2 in the LAD , 1 obtuse marginal, 1 circumflex) ALLERGIES: Ciprofloxacin leads to hives MEDICATIONS: Amlodipine 10 mg daily Aspirin 81 mg daily Lipitor 80 mg daily Plavix 75 mg daily Ferrous sulfate 324 mg twice a day Lasix 40 mg by mouth daily Insulin sliding scale before meals and at bedtime Detemir 15 units subcutaneous at bedtime Nitroglycerin 0.4 mg sublingual when necessary for chest pain Metoprolol tartrate 50 mg by mouth twice a day Oxycodone IR 5 mg every 4 hours as needed for breakthrough pain Paxil 20 mg by mouth daily SUBJECTIVE: Patient was feeling shaky at time over evaluation. Obtained a blood glucose which was 53. Patient given 8 ounces of orange juice. Breakfast tray was also present at this time. After orange juice blood sugar was rechecked and noted to be 70, patient was also feeling better clinically. Sides labile blood sugar, patient has no complaints. He denies any CP, SOB, N/V, lightheadedness, diaphoresis. Legs feel less swollen. VITAL SIGNS: 97.1F, pulse of 71, respiratory rate of 18, blood pressure 147/69 , 96% saturation room air PHYSICAL EXAMINATION: GENERAL: Well nourished, well developed, sitting up in chair, no acute distress. HEENT: Normocephalic, atraumatic. PERRL, EOMI CARDIOVASCULAR: S1, S2, regular rate. 1-2+ pitting edema bilateral lower limbs ( L>R). No calf tenderness bilaterally. LUNGS: +bilateral crackles 1/3 up (~stable), no wheezing or rhonchi appreciated. ABDOMEN: Soft, nontender, nondistended. Positive normoactive bowel sounds throughout. MUSCULOSKELETAL: MMT: 4/5 bilateral hip flexors and shoulder abduction and flexion, 5/5 remainder of the bilateral upper and lower limbs in all major muscle groups NEUROLOGICAL: Alert and oriented x 3. Answers all questions appropriately. Able to follow commands without difficulty. SKIN: Extensive excoriation, blanching to nonblanching erythema bilateral buttocks over the sacrum, gluteal folds, posteriomedial thighs (decreased), to 1 cm in diameter areas of skin breakdown posterior thigh and over the sacrum ( healing). LABORATORY DATA: 11/03/16: reviewed, see below 10/29/2016: WBC count 8.4, hemoglobin 8.2, platelets 234,000, sodium 137, potassium 5.2, bicarbonate 28, BUN 33, creatinine 1.86, blood glucose 155. Sputum culture 10/17/2016: No bacteria seen IMAGING: CXR 11/02/16: pul edema vs pna Chest x-ray from [facility]: Pulmonary edema OTHER TESTS Echocardiogram on 10/19/2016: Preserved EF FUNCTIONAL STATUS: Premorbid: Independent with ADLs and ambulation. On Admission: Moderate assistance, able to ambulate 6 feet. 11/02/16: Stand by assist for ADLs, standby assist for ambulation greater than 150 feet with SC. One loss of balance that required min assist to correct. ASSESSMENT AND PLAN: 1. ARDS status post extubation: Respiratory failure thought secondary to heart failure and possible pneumonia. Patient is status post antibiotics. While CXR read and pna vs edema, clinically more consistent with edema. Continue Incentive spirometry. 2. Fluid overload/heart failure: Recent echocardiogram showed a preserved ejection fracture per discharge summary. Patient is status post aggressive diuresis at OSH. Will continue Lasix daily at current dose for nowv given LL edema and recent CXR. Continue daily weights along with intake and outtake. 3. Acute kidney injury (multifactorial secondary to contrast from recent catheterization, supratherapeutic vancomycin and congestive nephropathy): Not yet back to baseline. AM labs. 4. Diabetes mellitus type 2 status post DKA: Labile BG. Re-questioning patient regarding home insulin regimen along with home diet. He reports 30 units of Lantus in the evening with proximally 20 units of Humalog throughout the day. He states his diet has not changed significantly here in the hospital. Episode is temporarily on related to peak onset of action of the detemir. He received 6 units of insulin with sliding scale this morning for blood glucose of 206 prior to his hypoglycemic episode which apparently too much. Rebekah changed parameters on the insulin sliding scale. As previously documented, long-acting was decreased yesterday. Well continue to monitor blood glucose closely with further adjustments as indicated. Carb consistent diet. 5. Gait abnormality and dysfunctional ADLs with overall medical debility secondary to extended hospital course related to items #1 through 4 above: Patient making great progress. Continue daily physical and occupational therapy. Rehabilitation nursing for bladder, bowel and medication management. 6. Electrolytes: Hyperkalemia secondary to acute kidney injury, resolved. 7. Coronary artery disease status post drug-eluting stents: Maintain patient on aspirin and Plavix. Maintain Hgb > 8. AM labs. 8. Anemia status post 5 units packed red blood cells at OSH: S/p 1 unit . Also started on iron supplementation. Given recent drug-eluting stents, patient must remain on Plavix and aspirin. As above,maintain hemoglobin greater than 8 given his comorbidities. AM labs. 9. Stage II decubiti with possible comorbid fungal infection: Improved over admission. Continue nystatin cream. Foam dressings over the area of open areas. Mobilization. 10. Diet/malnutrition: Prealbumin low. Carbohydrate consistent diet. Glucerna nutritional supplements. / Vital Signs Vital Sign - Last 24 Hours 11/03/16 11/03/16 11/03/16 11/04/16 14:00 21:00 21:01 06:05 Temp 97.1 97.4 97.1 Pulse 65 68 80 71 Resp 18 18 18 B/P 130/63 138/72 138/72 147/69 Pulse Ox 97 96 96 O2 Delivery Room Air Room Air Room Air 11/04/16 11/04/16 11/04/16 07:55 07:56 09:00 Pulse 71 71 B/P 147/69 147/69 O2 Delivery Room Air Laboratory Data Labs 24H Laboratory Tests 2 11/03/16 11:18: Bedside Glucose (Misc Panel) 166H 11/03/16 16:31: Bedside Glucose (Misc Panel) 97 11/03/16 19:07: Bedside Glucose (Misc Panel) 193H 11/04/16 06:27: Bedside Glucose (Misc Panel) 206H 11/04/16 08:53: Bedside Glucose (Misc Panel) 53L 11/04/16 09:46: Bedside Glucose (Misc Panel) 70 FSBS Laboratory Tests Test 11/03/16 11:18 11/03/16 16:31 11/03/16 19:07 11/04/16 06:27 Range/Units Bedside Glucose (Misc Panel) 166 97 193 206 70-105 MG/DL Test 11/04/16 08:53 11/04/16 09:46 Range/Units Bedside Glucose (Misc Panel) 53 70 70-105 MG/DL Microbiology Microbiology 11/02/16 Stool Occult Blood (LUNA) - Final, Complete 10/30/16 MRSA Screen - Final, Complete Allergies Allergies: Coded Allergies: Ciprofloxacin (Verified Allergy, Unknown, 10/30/16) Current Medications Current Medications Current Medications Acetaminophen (Tylenol Tab) 650 mg Q4HP PRN PO MILD PAIN (PS 1-4) Last administered on 11/03/16 08:36; Start 10/30/16 at 13:00; Stop 11/29/16 at 12:59 Amlodipine Besylate (Norvasc) 10 mg DAILY PO Last administered on 11/04/16 07: 55; Start 10/31/16 at 09:00; Stop 11/30/16 at 08:59 Ascorbic Acid (Vitamin C) 500 mg BID PO Last administered on 11/04/16 07:56; Start 10/31/16 at 09:00; Stop 11/30/16 at 08:59 Aspirin (Ecotrin) 81 mg DAILY PO Last administered on 11/04/16 07:56; Start at 09:00; Stop 11/30/16 at 08:59 Atorvastatin Calcium (Lipitor) 80 mg DAILY PO Last administered on 11/04/16 07 :55; Start 10/31/16 at 09:00; Stop 11/30/16 at 08:59 Clopidogrel Bisulfate (PLAVix) 75 mg DAILY PO Last administered on 11/04/16 07 :56; Start 10/31/16 at 09:00; Stop 11/30/16 at 08:59 Dextrose (Dextrose 50%) 25 ml ASDIRECTED PRN IV SEE LABEL COMMENTS; Start 10/30 at 13:00; Stop 11/29/16 at 12:59 Docusate Sodium (Colace) 100 mg BID PO Last administered on 11/04/16 07:55; Start 10/30/16 at 21:00; Stop 11/29/16 at 20:59 Ferrous Gluconate (Fergon) 324 mg BID PO Last administered on 11/04/16 07:55; Start 10/31/16 at 09:00; Stop 11/30/16 at 08:59 Furosemide (Lasix) 40 mg BID@ PO ; Start 10/30/16 at 17:00; Stop 10/30/16 at 17:00; Status DC Furosemide (Lasix) 40 mg DAILY PO Last administered on 11/04/16 07:55; Start 10/31/16 at 09:00; Stop 11/30/16 at 08:59 Gabapentin (Neurontin) 100 mg QHS PO Last administered on 11/03/16 21:01; Start 10/30/16 at 21:00; Stop 11/29/16 at 20:59 Glucagon (Glucagon) 1 mg ASDIRECTED PRN SC SEE LABEL COMMENTS; Start 10/30/16 at 13:00; Stop 11/29/16 at 12:59 Glucose (Glucose) 16 GM ASDIRECTED PRN PO SEE LABEL COMMENTS; Start 10/30/16 at 13:00; Stop 11/29/16 at 12:59 Home Med (Med Rec Complete!) ASDIRECTED XX ; Start 10/30/16 at 17:15; Stop 07/06 at 17:15; Status DC Insulin Detemir (Levemir Insulin) 15 units QHS SC Last administered on 21:02; Start 11/03/16 at 21:00; Stop 12/03/16 at 20:59 Insulin Detemir (Levemir Insulin) 20 units QHS SC Last administered on 20:17; Start 10/30/16 at 21:00; Stop 11/03/16 at 08:26; Status DC Insulin Human Lispro (HumaLOG INSULIN) See Protocol Table AC SC Last administered on 11/04/16 07:57; Start 10/30/16 at 17:30; Stop 11/04/16 at 10:35 ; Status DC Insulin Human Lispro (HumaLOG INSULIN) See Protocol Table AC SC ; Start at 12:00; Stop 12/04/16 at 11:59 Insulin Human Lispro (HumaLOG INSULIN) See Protocol Table QHS SC ; Start at 21:00; Stop 11/29/16 at 20:59 Magnesium Hydroxide (Milk Of Magnesia) 30 ml DAILYPRN PRN PO CONSTIPATION; Start 10/30/16 at 13:00; Stop 11/29/16 at 12:59 Metoprolol Tartrate (Lopressor) 50 mg BID PO Last administered on 11/04/16 07: 56; Start 10/30/16 at 21:00; Stop 11/29/16 at 20:59 Nitroglycerin (Nitrostat (1/ 150)) 0.4 mg Q5MP PRN SL CHEST PAIN; Start at 13:00; Stop 11/29/16 at 12:59 Nystatin (Mycostatin) 1 dose BID TOP Last administered on 11/03/16 08:38; Start 10/30/16 at 21:00; Stop 11/03/16 at 13:52; Status DC Nystatin/ Triamcinolone Acetonide (Mycolog) 1 dose BID TOP Last administered on 11/04/16 07:58; Start 11/03/16 at 21:00; Stop 12/03/16 at 20:59 Oxycodone HCl (Roxicodone, Oxyir) 5 mg Q4HP PRN PO MODERATE/SEVERE PAIN (PS 6- 10) Last administered on 10/31/16 09:07; Start 10/30/16 at 13:00; Stop at 12:59 Pantoprazole Sodium (Protonix) 40 mg DAILY PO Last administered on 11/04/16 07 :56; Start 10/31/16 at 09:00; Stop 11/30/16 at 08:59 Paroxetine HCl (PAXil) 10 mg DAILY PO Last administered on 11/04/16 07:56; Start 11/01/16 at 09:00; Stop 12/01/16 at 08:59 Paroxetine HCl (PAXil) 20 mg DAILY PO Last administered on 10/31/16 08:16; Start 10/31/16 at 09:00; Stop 10/31/16 at 12:10; Status DC Polyethylene Glycol (Miralax) 1 pkt DAILY PRN PO CONSTIPATION; Start 10/30/16 at 13:00; Stop 11/29/16 at 12:59 Senna (Senokot) 1 tab QHS PO Last administered on 11/03/16 21:01; Start at 21:00; Stop 11/29/16 at 20:59 Sodium Chloride (Saline Lock Flush) 2 ml ASDIRECTED PRN IV SEE LABEL COMMENTS; Start 11/02/16 at 19:00; Stop 12/02/16 at 18:59 Sodium Chloride (Saline Lock Flush) 2 ml SLF IV Last administered on 11/04/16 05:16; Start 11/02/16 at 22:00; Stop 12/02/16 at 21:59 UVALDO BOLIVAR MD Nov 04, 2016 10:40
[2016-11-04 14:00] VITALS: BP 129/67
[2016-11-04 20:00] VITALS: BP 140/52
[2016-11-04] MEDS: GABAPENTIN 100 MG CAP PO SCH (20:15)
[2016-11-04] MEDS: LEVEMIR (INSULIN DETEMIR) 1 UNITS/0.01ML SC SCH (20:16)
[2016-11-04] MEDS: SENNA 8.6 MG TAB (SENOKOT) PO SCH (20:48)
[2016-11-05] MEDS: SLF 3 ML SYR IV SCH (05:13)
[2016-11-05 06:00] VITALS: BP 142/68
[2016-11-05] MEDS: METOPROLOL TART 50 MG TAB PO SCH (08:08)
[2016-11-05] MEDS: ATORVASTATIN 20 MG TAB PO SCH (08:08)
[2016-11-05] MEDS: FUROSEMIDE 40 MG TAB PO SCH (08:08)
[2016-11-05] MEDS: HumaLOG INSULIN (NovoLOG) PER UNIT SC SCH ×4 (08:08→20:54)
[2016-11-05] MEDS: PANTOPRAZOLE 40MG TAB (PROTONIX) PO SCH (08:09)
[2016-11-05] MEDS: FERROUS GLUCONATE 324 MG TAB PO SCH ×2 (08:09→20:50)
[2016-11-05] MEDS: DOCUSATE SODIUM 100 MG CAP PO SCH ×2 (08:09→21:00)
[2016-11-05] MEDS: CLOPIDOGREL 75 MG TAB PO SCH (08:09)
[2016-11-05] MEDS: PARoxetine 10MG TABLET PO SCH (08:09)
[2016-11-05] MEDS: ASPIRIN 81 MG ENTERIC TAB PO SCH (08:09)
[2016-11-05] MEDS: ASCORBIC ACID 500 MG TAB PO SCH ×2 (08:09→20:50)
[2016-11-05] MEDS: amLODIPine 10 MG TAB PO SCH (08:09)
[2016-11-05] MEDS: MYCOLOG CREAM 15 GM (NYSTATIN/TRIAMCINOLONE) TOP SCH ×2 (08:10→21:00)
[2016-11-05 10:49] LABS: MEAN CORPUSCULAR HEMOGLOBIN 31.6 pg (27.0-33.0); MEAN CORPUSCULAR HGB CONC 32.5 g/dl (32.0-36.5); MEAN CORPUSCULAR VOLUME 97.3 fl (80.0-96.0); WHITE BLOOD COUNT 4.6 K/mm3 (4.0-10.0)
[2016-11-05 11:10] LABS: CALCIUM LEVEL 8.1 MG/DL (8.5-10.1); CREATININE FOR GFR 1.83 MG/DL (0.70-1.30); GLOMERULAR FILTRATION RATE 41.8 (>56); POTASSIUM SERUM 4.5 MEQ/L (3.5-5.1)
[2016-11-05 14:00] VITALS: BP 148/70
[2016-11-05] MEDS ORDERED: AMLO10TA2 PO (16:31)
[2016-11-05] MEDS ORDERED: CLOP75TA2 PO (16:31)
[2016-11-05] MEDS ORDERED: PANT40TA2 PO (16:31)
[2016-11-05] MEDS ORDERED: ATOR1TAB18 PO (16:31)
[2016-11-05] MEDS ORDERED: METO50TA2 PO (16:31)
[2016-11-05] MEDS ORDERED: METO25TAB PO (16:42)
--- NOTE | 2016-11-05 16:54 | IPNPDOC ---
[employer] Progress Note D PROGREE NOTE DATE OF ADMISSION: 10/30/16 DATE OF SERVICE: 11/05/16 IDENTIFICATION STATEMENT: Patient is a 51-year-old gentleman with extended hospital course due to ARDS/pneumonia, acute kidney injury, DKA, acute heart failure admitted for comprehensive integrated inpatient rehabilitation. PAST MEDICAL HISTORY: Hypertension Hyperlipidemia Diabetes mellitus type 2, insulin dependent (last hemoglobin A1c of 10.4) Peripheral vascular disease Coronary artery disease (80% obtuse marginal; 90% circumflex; mid left anterior descending 80%, proximal left anterior descending 70%) Chronic kidney disease (baseline creatinine approximately 1.3) Depressive disorder PAST SURGICAL HISTORY: Cholecystectomy Anal fistula repair in 1999 Right femoral popliteal bypass c/b saphenous graft abscess (MRSA)of the right thigh, revision in 2013 at [facility] Left bypass with graft ~2012 Non-ST elevation SD status post drug-eluting stents on 10/02/2016 (2 in the LAD , 1 obtuse marginal, 1 circumflex) ALLERGIES: Ciprofloxacin leads to hives MEDICATIONS: Amlodipine 10 mg daily Aspirin 81 mg daily Lipitor 80 mg daily Plavix 75 mg daily Ferrous sulfate 324 mg twice a day Lasix 40 mg by mouth daily Insulin sliding scale before meals and at bedtime Detemir 15 units subcutaneous at bedtime Nitroglycerin 0.4 mg sublingual when necessary for chest pain Metoprolol tartrate 50 mg by mouth twice a day Oxycodone IR 5 mg every 4 hours as needed for breakthrough pain Paxil 20 mg by mouth daily SUBJECTIVE: Patient feels well today, no further hypoglycemic episodes. He denies any CP, SOB, N/V, lightheadedness, diaphoresis. Legs less swollen. VITAL SIGNS: 97.7F, pulse of 71, respiratory rate of 20, blood pressure 148/70 , 93% saturation room air PHYSICAL EXAMINATION: GENERAL: Well nourished, well developed, sitting up in chair, no acute distress. HEENT: Normocephalic, atraumatic. PERRL, EOMI CARDIOVASCULAR: S1, S2, regular rate. 1+ pitting edema bilateral lower limbs (L> R, decreased). No calf tenderness bilaterally. LUNGS: +bibasilar crackles (decreased), no wheezing or rhonchi appreciated. ABDOMEN: Soft, nontender, nondistended. Normoactive bowel sounds throughout. MUSCULOSKELETAL: MMT: 5/5 bilateral hip flexors and shoulder abduction and flexion, 5/5 remainder of the bilateral upper and lower limbs in all major muscle groups NEUROLOGICAL: Alert and oriented x 3. Answers all questions appropriately. Able to follow commands without difficulty. SKIN: Extensive excoriation, blanching to nonblanching erythema bilateral buttocks over the sacrum, gluteal folds, posteriomedial thighs (decreased), to 1 cm in diameter areas of skin breakdown posterior thigh and over the sacrum ( healing). LABORATORY DATA: 11/05/16: reviewed, see below 10/29/2016: WBC count 8.4, hemoglobin 8.2, platelets 234,000, sodium 137, potassium 5.2, bicarbonate 28, BUN 33, creatinine 1.86, blood glucose 155. Sputum culture 10/17/2016: No bacteria seen IMAGING: CXR 11/02/16: pul edema vs pna Chest x-ray from [facility]: Pulmonary edema OTHER TESTS Echocardiogram on 10/19/2016: Preserved EF FUNCTIONAL STATUS: Premorbid: Independent with ADLs and ambulation. On Admission: Moderate assistance, able to ambulate 6 feet. 11/02/16: Stand by assist for ADLs, standby assist for ambulation greater than 150 feet with SC. One loss of balance that required min assist to correct. ASSESSMENT AND PLAN: 1. ARDS status post extubation: Respiratory failure thought secondary to heart failure and possible pneumonia. Patient is status post antibiotics. Continue Incentive spirometry. 2. Fluid overload/heart failure: Patient is status post aggressive diuresis at OSH. Will discontinue Lasix today. Continue daily weights along with intake and outtake. Since d/c ing Lasix, will increase metoprolol for better BP control. 3. Acute kidney injury (multifactorial secondary to contrast from recent catheterization, supratherapeutic vancomycin and congestive nephropathy): Improved but not yet back to baseline. AM labs. 4. Diabetes mellitus type 2 status post DKA: Improved BG control. [Hx: s/p parameters on the insulin sliding scale and decreased long-acting]. Continue to monitor blood glucose closely with further adjustments as indicated. Carb consistent diet. 5. Gait abnormality and dysfunctional ADLs with overall medical debility secondary to extended hospital course related to items #1 through 4 above: Patient continues to make progress. Continue daily physical and occupational therapy. Rehabilitation nursing for bladder, bowel and medication management. 6. Electrolytes: Hyperkalemia secondary to acute kidney injury, resolved. 7. Coronary artery disease status post drug-eluting stents: Maintain patient on aspirin and Plavix. Maintain Hgb > 8. AM labs. 8. Anemia status post 5 units packed red blood cells at OSH: S/p 1 unit . Also started on iron supplementation. Given recent drug-eluting stents, patient must remain on Plavix and aspirin. As above,maintain hemoglobin greater than 8 given his comorbidities. AM labs. 9. Stage II decubiti with possible comorbid fungal infection: Improved over admission. Continue nystatin cream. Foam dressings over the area of open areas. Mobilization. 10. Diet/malnutrition: Prealbumin low. Carbohydrate consistent diet. Glucerna nutritional supplements. / Vital Signs Vital Sign - Last 24 Hours 11/04/16 11/04/16 11/04/16 11/05/16 20:00 20:00 20:15 06:00 Temp 97.9 98.5 Pulse 76 76 90 Resp 18 18 B/P 140/52 140/52 142/68 Pulse Ox 92 94 O2 Delivery Room Air Room Air Room Air 11/05/16 11/05/16 11/05/16 08:08 08:09 14:00 Temp 97.7 Pulse 90 90 71 Resp 20 B/P 142/68 142/68 148/70 Pulse Ox 93 O2 Delivery Room Air Laboratory Data CBC/BMP Laboratory Tests 11/05/16 10:28 Calcium Level 8.1 L, Red Blood Count 2.74 L, Mean Corpuscular Volume 97.3 H, Mean Corpuscular Hemoglobin 31.6, Mean Corpuscular Hemoglobin Concent 32.5, Red Cell Distribution Width 14.0 Labs 24H Laboratory Tests 2 11/04/16 17:43: Bedside Glucose (Misc Panel) 317H 11/04/16 18:48: Bedside Glucose (Misc Panel) 385H 11/04/16 20:43: Bedside Glucose (Misc Panel) 239H 11/05/16 05:10: Bedside Glucose (Misc Panel) 185H 11/05/16 10:28: Anion Gap 12, Blood Urea Nitrogen 22H, Creatinine 1.83H, Sodium Level 141, Potassium Level 4.5, Chloride Level 102, Carbon Dioxide Level 27, Calcium Level 8.1L, Glomerular Filtration Rate 41.8L, Prealbumin 20.4 11/05/16 11:33: Bedside Glucose (Misc Panel) 182H FSBS Laboratory Tests Test 11/04/16 17:43 11/04/16 18:48 11/04/16 20:43 11/05/16 05:10 Range/Units Bedside Glucose (Misc Panel) 317 385 239 185 70-105 MG/DL Test 11/05/16 11:33 Range/Units Bedside Glucose (Misc Panel) 182 70-105 MG/DL Microbiology Microbiology 11/02/16 Stool Occult Blood (LUNA) - Final, Complete 10/30/16 MRSA Screen - Final, Complete Allergies Allergies: Coded Allergies: Ciprofloxacin (Verified Allergy, Unknown, 10/30/16) Current Medications Current Medications Current Medications Acetaminophen (Tylenol Tab) 650 mg Q4HP PRN PO MILD PAIN (PS 1-4) Last administered on 11/03/16 08:36; Start 10/30/16 at 13:00; Stop 11/29/16 at 12:59 Amlodipine Besylate (Norvasc) 10 mg DAILY PO Last administered on 11/05/16 08: 09; Start 10/31/16 at 09:00; Stop 11/30/16 at 08:59 Ascorbic Acid (Vitamin C) 500 mg BID PO Last administered on 11/05/16 08:09; Start 10/31/16 at 09:00; Stop 11/30/16 at 08:59 Aspirin (Ecotrin) 81 mg DAILY PO Last administered on 11/05/16 08:09; Start at 09:00; Stop 11/30/16 at 08:59 Atorvastatin Calcium (Lipitor) 80 mg DAILY PO Last administered on 11/05/16 08 :08; Start 10/31/16 at 09:00; Stop 11/30/16 at 08:59 Clopidogrel Bisulfate (PLAVix) 75 mg DAILY PO Last administered on 11/05/16 08 :09; Start 10/31/16 at 09:00; Stop 11/30/16 at 08:59 Dextrose (Dextrose 50%) 25 ml ASDIRECTED PRN IV SEE LABEL COMMENTS; Start 10/30 at 13:00; Stop 11/29/16 at 12:59 Docusate Sodium (Colace) 100 mg BID PO Last administered on 11/04/16 07:55; Start 10/30/16 at 21:00; Stop 11/29/16 at 20:59 Ferrous Gluconate (Fergon) 324 mg BID PO Last administered on 11/05/16 08:09; Start 10/31/16 at 09:00; Stop 11/30/16 at 08:59 Furosemide (Lasix) 40 mg BID@ PO ; Start 10/30/16 at 17:00; Stop 10/30/16 at 17:00; Status DC Furosemide (Lasix) 40 mg DAILY PO Last administered on 11/05/16 08:08; Start 10/31/16 at 09:00; Stop 11/05/16 at 16:32; Status DC Gabapentin (Neurontin) 100 mg QHS PO Last administered on 11/04/16 20:15; Start 10/30/16 at 21:00; Stop 11/29/16 at 20:59 Glucagon (Glucagon) 1 mg ASDIRECTED PRN SC SEE LABEL COMMENTS; Start 10/30/16 at 13:00; Stop 11/29/16 at 12:59 Glucose (Glucose) 16 GM ASDIRECTED PRN PO SEE LABEL COMMENTS; Start 10/30/16 at 13:00; Stop 11/29/16 at 12:59 Home Med (Med Rec Complete!) ASDIRECTED XX ; Start 10/30/16 at 17:15; Stop 07/06 at 17:15; Status DC Insulin Detemir (Levemir Insulin) 15 units QHS SC Last administered on 20:16; Start 11/03/16 at 21:00; Stop 12/03/16 at 20:59 Insulin Detemir (Levemir Insulin) 20 units QHS SC Last administered on 20:17; Start 10/30/16 at 21:00; Stop 11/03/16 at 08:26; Status DC Insulin Human Lispro (HumaLOG INSULIN) See Protocol Table AC SC Last administered on 11/04/16 07:57; Start 10/30/16 at 17:30; Stop 11/04/16 at 10:35 ; Status DC Insulin Human Lispro (HumaLOG INSULIN) See Protocol Table AC SC Last administered on 11/05/16 12:16; Start 11/04/16 at 12:00; Stop 12/04/16 at 11:59 Insulin Human Lispro (HumaLOG INSULIN) See Protocol Table QHS SC ; Start at 21:00; Stop 11/29/16 at 20:59 Magnesium Hydroxide (Milk Of Magnesia) 30 ml DAILYPRN PRN PO CONSTIPATION; Start 10/30/16 at 13:00; Stop 11/29/16 at 12:59 Metoprolol Tartrate (Lopressor) 50 mg BID PO Last administered on 11/05/16 08: 08; Start 10/30/16 at 21:00; Stop 11/05/16 at 16:34; Status DC Metoprolol Tartrate (Lopressor) 75 mg BID PO ; Start 11/05/16 at 21:00; Stop at 20:59 Nitroglycerin (Nitrostat (1/ 150)) 0.4 mg Q5MP PRN SL CHEST PAIN; Start at 13:00; Stop 11/29/16 at 12:59 Nystatin (Mycostatin) 1 dose BID TOP Last administered on 11/03/16 08:38; Start 10/30/16 at 21:00; Stop 11/03/16 at 13:52; Status DC Nystatin/ Triamcinolone Acetonide (Mycolog) 1 dose BID TOP Last administered on 11/05/16 08:10; Start 11/03/16 at 21:00; Stop 12/03/16 at 20:59 Oxycodone HCl (Roxicodone, Oxyir) 5 mg Q4HP PRN PO MODERATE/SEVERE PAIN (PS 6- 10) Last administered on 10/31/16 09:07; Start 10/30/16 at 13:00; Stop at 12:59 Pantoprazole Sodium (Protonix) 40 mg DAILY PO Last administered on 11/05/16 08 :09; Start 10/31/16 at 09:00; Stop 11/30/16 at 08:59 Paroxetine HCl (PAXil) 10 mg DAILY PO Last administered on 11/05/16 08:09; Start 11/01/16 at 09:00; Stop 12/01/16 at 08:59 Paroxetine HCl (PAXil) 20 mg DAILY PO Last administered on 10/31/16 08:16; Start 10/31/16 at 09:00; Stop 10/31/16 at 12:10; Status DC Polyethylene Glycol (Miralax) 1 pkt DAILY PRN PO CONSTIPATION; Start 10/30/16 at 13:00; Stop 11/29/16 at 12:59 Senna (Senokot) 1 tab QHS PO Last administered on 11/03/16 21:01; Start at 21:00; Stop 11/29/16 at 20:59 Sodium Chloride (Saline Lock Flush) 2 ml ASDIRECTED PRN IV SEE LABEL COMMENTS; Start 11/02/16 at 19:00; Stop 11/05/16 at 12:19; Status DC Sodium Chloride (Saline Lock Flush) 2 ml SLF IV Last administered on 11/05/16 05:13; Start 11/02/16 at 22:00; Stop 11/05/16 at 12:19; Status DC UVALDO BOLIVAR MD Nov 05, 2016 16:54
[2016-11-05 20:00] VITALS: BP 141/74
[2016-11-05] MEDS: METOPROLOL TART 25 MG TABLET PO SCH (20:49)
[2016-11-05] MEDS: GABAPENTIN 100 MG CAP PO SCH (20:50)
[2016-11-05] MEDS: LEVEMIR (INSULIN DETEMIR) 1 UNITS/0.01ML SC SCH (20:54)
[2016-11-05] MEDS: SENNA 8.6 MG TAB (SENOKOT) PO SCH (21:00)
[2016-11-06 06:00] VITALS: BP 143/78
[2016-11-06 07:03] LABS: MEAN CORPUSCULAR HEMOGLOBIN 31.7 pg (27.0-33.0); MEAN CORPUSCULAR HGB CONC 32.5 g/dl (32.0-36.5); MEAN CORPUSCULAR VOLUME 97.4 fl (80.0-96.0); RED CELL DISTRIBUTION WIDTH 14.5 % (11.5-14.5); WHITE BLOOD COUNT 4.6 K/mm3 (4.0-10.0)
[2016-11-06 07:25] LABS: CALCIUM LEVEL 8.5 MG/DL (8.5-10.1); CREATININE FOR GFR 1.74 MG/DL (0.70-1.30); GLOMERULAR FILTRATION RATE 44.3 (>56); POTASSIUM SERUM 4.5 MEQ/L (3.5-5.1)
[2016-11-06] MEDS: HumaLOG INSULIN (NovoLOG) PER UNIT SC SCH (07:30)
[2016-11-06 08:37] VITALS: BP 143/78
[2016-11-06] MEDS: amLODIPine 10 MG TAB PO SCH (08:37)
[2016-11-06] MEDS: DOCUSATE SODIUM 100 MG CAP PO SCH (08:37)
[2016-11-06] MEDS: PARoxetine 10MG TABLET PO SCH (08:37)
[2016-11-06] MEDS: ATORVASTATIN 20 MG TAB PO SCH (08:37)
[2016-11-06] MEDS: PANTOPRAZOLE 40MG TAB (PROTONIX) PO SCH (08:37)
[2016-11-06] MEDS: METOPROLOL TART 25 MG TABLET PO SCH (08:37)
[2016-11-06] MEDS: ASCORBIC ACID 500 MG TAB PO SCH (08:37)
[2016-11-06] MEDS: CLOPIDOGREL 75 MG TAB PO SCH (08:37)
[2016-11-06] MEDS: FERROUS GLUCONATE 324 MG TAB PO SCH (08:37)
[2016-11-06] MEDS: MYCOLOG CREAM 15 GM (NYSTATIN/TRIAMCINOLONE) TOP SCH (08:38)
[2016-11-06] MEDS: ASPIRIN 81 MG ENTERIC TAB PO SCH (08:38)
[2016-11-06] MEDS ORDERED: MYCO15CR TOP (11:09)
[2016-11-06] MEDS ORDERED: GABA-279 PO (11:09)
[2016-11-06] MEDS ORDERED: FERR32TA PO (11:09)
--- NOTE | 2016-11-06 11:13 | DS.PDOC ---
Online Editor Discharge Note DISCHARGE SUMMARY DATE OF ADMISSION: 10/30/16 DATE OF DISCHARGE: 11/06/16 DISCHARGE DIAGNOSES 1. ARDS secondary to heart failure vs possible pneumonia 2. Fluid overload/heart failure 3. Acute kidney injury 4. Diabetes mellitus type 2 status post DKA 5. Gait abnormality and dysfunctional ADLs with medical debility 6. Hyperkalemia. 7. Coronary artery disease/ status post NC, subsequent drug-eluting stents 8. Anemia status post 1 units packed red blood cells while on acute rehabilitation 9. Stage II decubiti with comorbid fungal infection 10. Malnutrition IDENTIFICATION STATEMENT: Patient is a 51-year-old gentleman with extended hospital course due to ARDS/pneumonia, acute kidney injury, DKA, acute heart failure admitted for comprehensive integrated inpatient rehabilitation. PAST MEDICAL HISTORY: Hypertension Hyperlipidemia Diabetes mellitus type 2, insulin dependent (last hemoglobin A1c of 10.4) Peripheral vascular disease Coronary artery disease (80% obtuse marginal; 90% circumflex; mid left anterior descending 80%, proximal left anterior descending 70%) Chronic kidney disease (baseline creatinine approximately 1.3) Depressive disorder PAST SURGICAL HISTORY: Cholecystectomy Anal fistula repair in 1999 Right femoral popliteal bypass c/b saphenous graft abscess (MRSA)of the right thigh, revision in 2013 at [facility] Left bypass with graft ~2012 Non-ST elevation NC status post drug-eluting stents on 10/02/2016 (2 in the LAD , 1 obtuse marginal, 1 circumflex) HOSPITAL COURSE The patient underwent daily physical and occupational therapy. He made progressive gains and reached his functional goals. On 11/06/16 he was deemed stable discharge home. Issues addressed while on the rehabilitation unit are outlined as follows: 1. ARDS status post extubation: Respiratory failure thought secondary to heart failure and possible pneumonia. Patient is status post antibiotics. Maintained on incentive spirometry. 2. Fluid overload/heart failure: Patient is status post aggressive diuresis at OSH. Continued Lasix daily until 11/05/16. Monitored daily weights along with intake and outtake. After d/cing Lasix, increase metoprolol for better BP control. 3. Acute kidney injury (multifactorial secondary to contrast from recent catheterization, supratherapeutic vancomycin and congestive nephropathy): Improved at time of discharge 4. Diabetes mellitus type 2 status post DKA: Labile BG while on rehabilitation unit. S/p multiple adjustment in his insulin regimen. Patient underwent diabetic education during rehabilitation. Carb consistent diet. 5. Hyperkalemia (mild) upon admission, resolved by following day.. 6. Coronary artery disease status post drug-eluting stents: Maintain patient on aspirin and Plavix. Maintain Hgb > 8.. 8. Anemia: Status post 5 units packed red blood cells at OSH: S/p 1 unit on rehabilitation unit 11/01/16. Also started on iron supplementation. 9. Stage II decubiti with comorbid fungal infection: Started on nystatin/ hydrocortisone cream and improved over admission cream. Foam dressings over the area of open areas which were close by time of discharge. 10. Malnutrition: Prealbumin low but improving at time of discharge after starting nutritional supplements. VITAL SIGNS: 98.9F, pulse of 68, respiratory rate of 18, blood pressure 143/78 , 98% saturation room air PHYSICAL EXAMINATION: GENERAL: Well nourished, well developed, sitting up in chair, no acute distress. HEENT: Normocephalic, atraumatic. PERRL, EOMI CARDIOVASCULAR: S1, S2, regular rate. trace edema left LL, no edema right. No calf tenderness bilaterally. LUNGS: +bibasilar crackles (decreased), no wheezing or rhonchi appreciated. ABDOMEN: Soft, nontender, nondistended. Normoactive bowel sounds throughout. MUSCULOSKELETAL: MMT: 5/5 bilateral hip flexors and shoulder abduction and flexion, 5/5 remainder of the bilateral upper and lower limbs in all major muscle groups NEUROLOGICAL: Alert and oriented x 3. Answers all questions appropriately. Able to follow commands without difficulty. SKIN: Blanching to nonblanching erythema bilateral buttocks over the sacrum, gluteal folds, posteriomedial thighs (decreased). LABORATORY DATA: 11/06/16: reviewed, see below MRSA 10/30/16: negative Stool 11/02/16: neg occult blood IMAGING: CXR 11/02/16: pul edema vs pna ALLERGIES: Ciprofloxacin leads to hives MEDICATIONS: Amlodipine 10 mg daily Metoprolol tartrate 75 mg by mouth twice a day Aspirin 81 mg daily Lipitor 80 mg daily Plavix 75 mg daily Protonix 40mg daily Ferrous sulfate 324 mg twice a day Insulin sliding scale before meals and at bedtime Lantus 15 units subcutaneous at bedtime Gabapentin 100mg qhs Nystatin/triamcinolone cream to buttocks/thighs bid x 10 more days Nitroglycerin 0.4 mg sublingual when necessary for chest pain DISCHARGE DISPOSITION: 1. The patient discharge home with family and HHS 2. The patient discharged in stable condition 3. Equipment: 4. Post discharge follow-up medical appointments: PCP, Bicycle Mechanic. / Vital Signs/I&O Vital Sign - Last 24 Hours 11/05/16 11/05/16 11/05/16 11/05/16 14:00 20:00 20:00 20:49 Temp 97.7 97.4 Pulse 71 69 69 Resp 20 18 B/P 148/70 141/74 141/74 Pulse Ox 93 97 O2 Delivery Room Air Room Air 11/06/16 11/06/16 11/06/16 06:00 08:37 08:37 Temp 98.9 Pulse 68 68 68 Resp 18 B/P 143/78 143/78 143/78 Pulse Ox 98 O2 Delivery Room Air I&O- Last 24 Hours up to 6 AM 11/06/16 06:00 Intake Total 1320 ml Output Total 1200 ml Balance 120 ml Laboratory Data CBC/BMP Laboratory Tests 11/05/16 10:28 Calcium Level 8.1 L, Red Blood Count 2.74 L, Mean Corpuscular Volume 97.3 H, Mean Corpuscular Hemoglobin 31.6, Mean Corpuscular Hemoglobin Concent 32.5, Red Cell Distribution Width 14.0 11/06/16 06:04 Calcium Level 8.5, Red Blood Count 2.73 L, Mean Corpuscular Volume 97.4 H, Mean Corpuscular Hemoglobin 31.7, Mean Corpuscular Hemoglobin Concent 32.5, Red Cell Distribution Width 14.5 Labs 48H Laboratory Tests 11/04/16 11:28: Bedside Glucose (Misc Panel) 112H 11/04/16 16:44: Bedside Glucose (Misc Panel) 342H 11/04/16 17:43: Bedside Glucose (Misc Panel) 317H 11/04/16 18:48: Bedside Glucose (Misc Panel) 385H 11/04/16 20:43: Bedside Glucose (Misc Panel) 239H 11/05/16 05:10: Bedside Glucose (Misc Panel) 185H 11/05/16 10:28: Anion Gap 12, Blood Urea Nitrogen 22H, Creatinine 1.83H, Sodium Level 141, Potassium Level 4.5, Chloride Level 102, Carbon Dioxide Level 27, Calcium Level 8.1L, Fasting Glucose 127H, Glomerular Filtration Rate 41.8L, White Blood Count 4.6, Red Blood Count 2.74L, Hemoglobin 8.7L, Hematocrit 26.6L, Mean Corpuscular Volume 97.3H, Mean Corpuscular Hemoglobin 31.6, Mean Corpuscular Hemoglobin Concent 32.5, Red Cell Distribution Width 14.0, Platelet Count 393, Prealbumin 20.4 11/05/16 11:33: Bedside Glucose (Misc Panel) 182H 11/05/16 17:01: Bedside Glucose (Misc Panel) 197H 11/05/16 20:33: Bedside Glucose (Misc Panel) 186H 11/06/16 06:04: Anion Gap 8, Blood Urea Nitrogen 22H, Creatinine 1.74H, Sodium Level 144, Potassium Level 4.5, Chloride Level 105, Carbon Dioxide Level 31, Calcium Level 8.5, Fasting Glucose 39*L, Glomerular Filtration Rate 44.3L, White Blood Count 4.6, Red Blood Count 2.73L, Hemoglobin 8.7L, Hematocrit 26.6L, Mean Corpuscular Volume 97.4H, Mean Corpuscular Hemoglobin 31.7, Mean Corpuscular Hemoglobin Concent 32.5, Red Cell Distribution Width 14.5, Platelet Count 371 11/06/16 06:05: Bedside Glucose (Misc Panel) 45L 11/06/16 06:31: Bedside Glucose (Misc Panel) 80 11/06/16 07:35: Bedside Glucose (Misc Panel) 110H FSBS Laboratory Tests Test 11/05/16 11:33 11/05/16 17:01 11/05/16 20:33 11/06/16 06:05 Range/Units Bedside Glucose (Misc Panel) 182 197 186 45 70-105 MG/DL Test 11/06/16 06:31 11/06/16 07:35 Range/Units Bedside Glucose (Misc Panel) 80 110 70-105 MG/DL Microbiology Microbiology 11/02/16 Stool Occult Blood (LUNA) - Final, Complete 10/30/16 MRSA Screen - Final, Complete Medications Medications Current Medications Acetaminophen (Tylenol Tab) 650 mg Q4HP PRN PO MILD PAIN (PS 1-4) Last administered on 11/03/16t 08:36; Start 2/10/17 at 13:00; Stop 11/06/16 at 11:06 ; Status DC Amlodipine Besylate (Norvasc) 10 mg DAILY PO Last administered on 11/06/16 08: 37; Start 10/31/16 at 09:00; Stop 11/06/16 at 11:06; Status DC Ascorbic Acid (Vitamin C) 500 mg BID PO Last administered on 11/06/16 08:37; Start 10/31/16 at 09:00; Stop 11/06/16 at 11:06; Status DC Aspirin (Ecotrin) 81 mg DAILY PO Last administered on 11/06/16 08:38; Start at 09:00; Stop 11/06/16 at 11:06; Status DC Atorvastatin Calcium (Lipitor) 80 mg DAILY PO Last administered on 11/06/16 08 :37; Start 10/31/16 at 09:00; Stop 11/06/16 at 11:06; Status DC Clopidogrel Bisulfate (PLAVix) 75 mg DAILY PO Last administered on 11/06/16 08 :37; Start 10/31/16 at 09:00; Stop 11/06/16 at 11:06; Status DC Dextrose (Dextrose 50%) 25 ml ASDIRECTED PRN IV SEE LABEL COMMENTS; Start 10/30 at 13:00; Stop 11/06/16 at 11:06; Status DC Docusate Sodium (Colace) 100 mg BID PO Last administered on 11/06/16 08:37; Start 10/30/16 at 21:00; Stop 11/06/16 at 11:06; Status DC Ferrous Gluconate (Fergon) 324 mg BID PO Last administered on 11/06/16 08:37; Start 10/31/16 at 09:00; Stop 11/06/16 at 11:06; Status DC Furosemide (Lasix) 40 mg BID@ PO ; Start 10/30/16 at 17:00; Stop 10/30/16 at 17:00; Status DC Furosemide (Lasix) 40 mg DAILY PO Last administered on 11/05/16 08:08; Start 10/31/16 at 09:00; Stop 11/05/16 at 16:32; Status DC Gabapentin (Neurontin) 100 mg QHS PO Last administered on 11/05/16 20:50; Start 10/30/16 at 21:00; Stop 11/06/16 at 11:06; Status DC Glucagon (Glucagon) 1 mg ASDIRECTED PRN SC SEE LABEL COMMENTS; Start 10/30/16 at 13:00; Stop 11/06/16 at 11:06; Status DC Glucose (Glucose) 16 GM ASDIRECTED PRN PO SEE LABEL COMMENTS; Start 10/30/16 at 13:00; Stop 11/06/16 at 11:06; Status DC Home Med (Med Rec Complete!) ASDIRECTED XX ; Start 10/30/16 at 17:15; Stop 07/06 at 17:15; Status DC Insulin Detemir (Levemir Insulin) 15 units QHS SC Last administered on 20:54; Start 11/03/16 at 21:00; Stop 11/06/16 at 11:06; Status DC Insulin Detemir (Levemir Insulin) 20 units QHS SC Last administered on 20:17; Start 10/30/16 at 21:00; Stop 11/03/16 at 08:26; Status DC Insulin Human Lispro (HumaLOG INSULIN) See Protocol Table AC SC Last administered on 11/04/16 07:57; Start 10/30/16 at 17:30; Stop 11/04/16 at 10:35 ; Status DC Insulin Human Lispro (HumaLOG INSULIN) See Protocol Table AC SC Last administered on 11/05/16 17:18; Start 11/04/16 at 12:00; Stop 11/06/16 at 11:06 ; Status DC Insulin Human Lispro (HumaLOG INSULIN) See Protocol Table QHS SC ; Start at 21:00; Stop 11/06/16 at 11:06; Status DC Magnesium Hydroxide (Milk Of Magnesia) 30 ml DAILYPRN PRN PO CONSTIPATION; Start 10/30/16 at 13:00; Stop 11/06/16 at 11:06; Status DC Metoprolol Tartrate (Lopressor) 50 mg BID PO Last administered on 11/05/16 08: 08; Start 10/30/16 at 21:00; Stop 11/05/16 at 16:34; Status DC Metoprolol Tartrate (Lopressor) 75 mg BID PO Last administered on 11/06/16 08: 37; Start 11/05/16 at 21:00; Stop 11/06/16 at 11:06; Status DC Nitroglycerin (Nitrostat (1/ 150)) 0.4 mg Q5MP PRN SL CHEST PAIN; Start at 13:00; Stop 11/06/16 at 11:06; Status DC Nystatin (Mycostatin) 1 dose BID TOP Last administered on 11/03/16 08:38; Start 10/30/16 at 21:00; Stop 11/03/16 at 13:52; Status DC Nystatin/ Triamcinolone Acetonide (Mycolog) 1 dose BID TOP Last administered on 11/06/16 08:38; Start 11/03/16 at 21:00; Stop 11/06/16 at 11:06; Status DC Oxycodone HCl (Roxicodone, Oxyir) 5 mg Q4HP PRN PO MODERATE/SEVERE PAIN (PS 6- 10) Last administered on 10/31/16 09:07; Start 10/30/16 at 13:00; Stop at 11:06; Status DC Pantoprazole Sodium (Protonix) 40 mg DAILY PO Last administered on 11/06/16 08 :37; Start 10/31/16 at 09:00; Stop 11/06/16 at 11:06; Status DC Paroxetine HCl (PAXil) 10 mg DAILY PO Last administered on 11/06/16 08:37; Start 11/01/16 at 09:00; Stop 11/06/16 at 11:06; Status DC Paroxetine HCl (PAXil) 20 mg DAILY PO Last administered on 10/31/16 08:16; Start 10/31/16 at 09:00; Stop 10/31/16 at 12:10; Status DC Polyethylene Glycol (Miralax) 1 pkt DAILY PRN PO CONSTIPATION; Start 10/30/16 at 13:00; Stop 11/06/16 at 11:06; Status DC Senna (Senokot) 1 tab QHS PO Last administered on 11/03/16 21:01; Start at 21:00; Stop 11/06/16 at 11:06; Status DC Sodium Chloride (Saline Lock Flush) 2 ml ASDIRECTED PRN IV SEE LABEL COMMENTS; Start 11/02/16 at 19:00; Stop 11/05/16 at 12:19; Status DC Sodium Chloride (Saline Lock Flush) 2 ml SLF IV Last administered on 11/05/16t 05:13; Start 11/02/16 at 22:00; Stop 11/05/16 at 12:19; Status DC Scheduled (B Complex) 1 Tab Tab 1 TAB PO DAILY (Reported) Amlodipine Besylate (Amlodipine Besylate) 10 Mg Tab 10 MG PO DAILY Aspirin (Aspirin 81) 81 Mg Tab 81 MG PO DAILY (Reported) Atorvastatin Calcium (Atorvastatin Calcium) 80 Mg Tab 80 MG PO DAILY 40 MG GIVEN IN HOSP Clopidogrel Bisulfate (Clopidogrel) 75 Mg Tab 75 MG PO DAILY Ferrous Gluconate (Ferrous Gluconate) 324 Mg Tab 324 MG PO BID Gabapentin (Gabapentin) 100 Mg Cap 100 MG PO QHS Insulin Glargine (Lantus) 1 Units/0.01 Ml Susp 35 UNITS SC QHS (Reported) 20 UNITS GIVEN IN HOSP Insulin Human Regular (Humulin R) 1 Units/0.01 Ml Soln 1 DOSE SC TID (Reported ) Metoprolol Tartrate (Metoprolol Tartrate) 25 Mg Tab 75 MG PO BID Nystatin/Triamcinolone (Nystatin/Triamcinolone 327121-5.1 Unit/gm-%) 1 Dose/15 Gm Cream 1 DOSE TOP BID use for 10 more days buttock/thighs then stop Pantoprazole Sodium (Pantoprazole Sodium) 40 Mg Tab 40 MG PO DAILY NOT HOME MED, GIVEN IN HOSP Scheduled PRN Acetaminophen (Acetaminophen) 325 Mg Tab 650 MG PO Q6H PRN PRN PAIN (Reported) Allergies Coded Allergies: Ciprofloxacin (Verified Allergy, Unknown, 10/30/16) UVALDO BOLIVAR MD Nov 06, 2016 11:13
== END 2016-11-06 10:45 | disposition home health service (06) | DRG 58 ==
LOC: M PM&R 14:15
PROVIDERS: ADMIT Physical Medicine & Rehabilitation; ATTEND Physical Medicine & Rehabilitation
PROC: 30233N1 Transfusion of Nonautologous Red Blood Cells into Peripheral Vein, Percutaneous Approach (ICD-10-PCS; principal; 2016-11-01)
DX: R26.9 Unspecified abnormalities of gait and mobility (principal); N17.9 Acute kidney failure, unspecified; L89.312 Pressure ulcer of right buttock, stage 2; E46 Unspecified protein-calorie malnutrition; B49 Unspecified mycosis; L89.322 Pressure ulcer of left buttock, stage 2; I50.9 Heart failure, unspecified; E87.5 Hyperkalemia; E87.70 Fluid overload, unspecified; E11.9 Type 2 diabetes mellitus without complications; I25.10 Atherosclerotic heart disease of native coronary artery without angina pectoris; D64.9 Anemia, unspecified; I12.9 Hypertensive chronic kidney disease with stage 1 through stage 4 chronic kidney disease, or unspecified chronic kidney disease; E78.5 Hyperlipidemia, unspecified; I73.9 Peripheral vascular disease, unspecified; F32.9 Major depressive disorder, single episode, unspecified; N18.9 Chronic kidney disease, unspecified; R60.0 Localized edema; Z79.82 Long term (current) use of aspirin; Z90.49 Acquired absence of other specified parts of digestive tract; Z79.4 Long term (current) use of insulin; Z79.899 Other long term (current) drug therapy; Z83.3 Family history of diabetes mellitus; Z88.1 Allergy status to other antibiotic agents; Z80.1 Family history of malignant neoplasm of trachea, bronchus and lung; Z95.1 Presence of aortocoronary bypass graft; I25.2 Old myocardial infarction